=== PATIENT | female | born 1940 | race Caucasian/White ===

== ENCOUNTER 2017-10-19 15:10 | Emergency (ER) | payer MEDICARE ==
--- NOTE | 2017-10-19 17:46 | CT ---
CT HEAD NONCONTRAST: HISTORY: Fall. Head injury. COMPARISON: 01/08/2017 FINDINGS: There is no evidence of acute intracranial hemorrhage or infarct. The ventricles appear normal in si ze, shape, and position. A small hyperdense focus at the right basal ganglia is stable. There is no mass effect or shift of midline structures. The visualized paranasal sinuses remain well aerated. IMPRESSION: No acute intracranial abnormalities are demonstrated. POS: [facility]
--- NOTE | 2017-10-19 19:50 | CT ---
CT CERVICAL SPINE NONCONTRAST: HISTORY: Fall. Neck injury. FINDINGS: Vertebral body height and alignment are maintained. Disk space narrowing is most pronounced at the C 4-C5 level, where there is minimal degenerative retrolisthesis. Osteophytosis is present throughout the vertebral bodies and facets. The cervicothoracic junction is intact. Postoperative changes of the left mastoid are apparent. Pleural thickening and calcifications are ap parent at each lung apex. IMPRESSION: 1. Prominent cervical spondylosis. 2. No acute osseous abnormalities demonstrated. POS: [facility]
--- NOTE | 2017-10-19 19:51 | CT ---
CT FACE NONCONTRAST: HISTORY: Fall. Facial injury. FINDINGS: The mandible, globes, and zygomatic arches are intact. The paranasal sinuses are well aerated. No a cute fracture or dislocation. Left frontal scalp swelling is partially visualized. IMPRESSION: No acute osseous abnormalities demonstrated. POS: [facility]
--- NOTE | 2017-10-19 20:25 | RAD ---
PELVIS ONE VIEW: HISTORY: Recent fall. COMPARISON: 12/14/2006 FINDINGS: There appears to be an uncomplicated right hip prosthesis. The visualized bony pelvis appears to be intact. Limited evaluation of the sacral ala. There is irregularity involving the subcapital region of the left hip. Findings may be chronic. If the patient is unable to bear weight, consider additi onal imaging. IMPRESSION: Presumed chronic changes of the left hip. If the patient is unable to bear weight, consider left hip CT. POS: [facility]
== END 2017-10-19 20:36 | disposition home or self-care (01) ==
LOC: ERS 15:10
DX: S00.83XA Contusion of other part of head, initial encounter (principal); S00.12XA Contusion of left eyelid and periocular area, initial encounter; E11.9 Type 2 diabetes mellitus without complications; E78.5 Hyperlipidemia, unspecified; F32.9 Major depressive disorder, single episode, unspecified; Z79.82 Long term (current) use of aspirin; Z79.4 Long term (current) use of insulin; Z79.899 Other long term (current) drug therapy; W17.89XA Other fall from one level to another, initial encounter
CPT/HCPCS: 70450; 70486; 72125; 72170; 93005

== ENCOUNTER 2018-01-31 15:22 | Emergency (ER) | payer MEDICARE ==
[2018-01-31] MEDS ORDERED: HYDROcodone/Acetaminophen 10/325 mg Tablet ONE (15:40)
--- NOTE | 2018-01-31 16:22 | RAD ---
RIGHT ANKLE THREE VIEWS: INDICATIONS: Fall with injury and pain. FINDINGS: There is a fibular tip avulsion injury with associated soft tissue swelling. No significant abnormal widening of the ankle mortise. IMPRESSION: Distal fibular fracture with associated soft tissue swelling. POS: [facility]
--- NOTE | 2018-01-31 16:23 | RAD ---
RIGHT HIP TWO VIEWS: INDICATIONS: Fall with right hip pain. COMPARISON: 01/14/2017 FINDINGS: Right hip arthroplasty is again demonstrated. Alignment is grossly stable. No abnormal acute hardwa re complication identified. No acute osseous abnormality. IMPRESSION: Stable postoperative right hip. POS: [facility]
--- NOTE | 2018-01-31 16:24 | RAD ---
FRONTAL VIEW PELVIS: INDICATIONS: Followup pelvic pain, injury. COMPARISON: 10/19/2017 FINDINGS: There is a right hip prosthesis without acute hardware complication. Scattered osseous degenerative change is present. No discrete fracture of the pelvis identified. IMPRESSION: 1. Postoperative right hip. 2. No acute osseous abnormality or acute hardware complication evident. POS: [facility]
--- NOTE | 2018-01-31 16:29 | RAD ---
RIGHT FOOT THREE VIEWS: INDICATIONS: Post traumatic right foot pain. COMPARISON: Reference right ankle radiograph series for details in this regard. FINDINGS: There is scattered osteoarthritis of the right foot. Heterotopic density is present at the plantar a spect of the anterior portion of the calcaneus, likely chronic. Lisfranc joint is maintained. Chron ic heterotopic density is present, adjacent to the first MTP joint. IMPRESSION: Chronic findings of the right foot without definite acute abnormality. POS: [facility]
== END 2018-01-31 17:15 | disposition home or self-care (01) ==
LOC: ERS 15:22
DX: S82.831A Other fracture of upper and lower end of right fibula, initial encounter for closed fracture (principal); E11.9 Type 2 diabetes mellitus without complications; E78.5 Hyperlipidemia, unspecified; F41.9 Anxiety disorder, unspecified; F32.9 Major depressive disorder, single episode, unspecified; Z79.899 Other long term (current) drug therapy; Z79.4 Long term (current) use of insulin; Z79.82 Long term (current) use of aspirin; W01.0XXA Fall on same level from slipping, tripping and stumbling without subsequent striking against object, initial encounter
CPT/HCPCS: 72170

== ENCOUNTER 2018-02-20 12:26 | Emergency (ER) | payer MEDICARE ==
[2018-02-20] MEDS ORDERED: Adacel (T-DAP) 0.5 ML VIAL ONE (12:53)
== END 2018-02-20 14:23 | disposition home or self-care (01) ==
LOC: ERS 12:26
DX: S81.851A Open bite, right lower leg, initial encounter (principal); S81.811A Laceration without foreign body, right lower leg, initial encounter; I25.10 Atherosclerotic heart disease of native coronary artery without angina pectoris; E11.9 Type 2 diabetes mellitus without complications; E78.5 Hyperlipidemia, unspecified; J44.9 Chronic obstructive pulmonary disease, unspecified; F41.9 Anxiety disorder, unspecified; F32.9 Major depressive disorder, single episode, unspecified; I49.9 Cardiac arrhythmia, unspecified; Z79.4 Long term (current) use of insulin; Z79.82 Long term (current) use of aspirin; Z23 Encounter for immunization; W54.0XXA Bitten by dog, initial encounter
CPT/HCPCS: 90471; 90715

== ENCOUNTER 2018-06-02 07:02 | Outpatient (CLI) | payer MEDICARE ==
--- NOTE | 2018-06-02 08:35 | ULT ---
SONOGRAM ABDOMEN COMPLETE: History: Upper abdomen pain. Abnormal liver function tests. FINDINGS: Gallbladder has a normal appearance without evidence of stones. Common duct is 0.2 cm. Liver is unrem arkable without focal mass or intrahepatic biliary dilatation. No free fluid. Cysts arise from the cortex of each kidney, measuring up to 1.6 cm on the right and 2.4 cm on the lef t. No hydronephrosis. The spleen and visualized portions of the abdominal aorta, IVC, and pancreas avelar ve a normal appearance. IMPRESSION: 1. Bilateral renal cysts. 2. No acute abnormalities are demonstrated. POS: [facility]
== END 2018-06-02 07:03 | disposition home or self-care (01) ==
LOC: ULT 07:02
PROVIDERS: ATTEND Nurse Practitioner Family
DX: R79.89 Other specified abnormal findings of blood chemistry (principal); E11.65 Type 2 diabetes mellitus with hyperglycemia; E78.2 Mixed hyperlipidemia; N28.1 Cyst of kidney, acquired
CPT/HCPCS: 76700

== ENCOUNTER 2018-06-02 09:09 | Outpatient (CLI) | payer MEDICARE ==
--- NOTE | 2018-06-02 12:10 | BD ---
DEXA BONE DENSITOMETRY: (Dual energy X-ray Absorptiometry) 06/02/2018 HISTORY: A 77-year-old postmenopausal white female, for followup, age-related osteoporosis screening examinati on. COMPARISON: 03/11/2016 FINDINGS: The bone mineral density (BMD) is given in grams per square centimeter (g/cm2): LUMBAR SPINE: BMD(g/cm2) T-score Z-score L1: 1.083 0.8 3.2 L2: 1.163 1.2 3.9 L3: 1.242 1.4 4.2 L4: 1.324 2.4 5.2 Total: 1.214 1.5 4.2 Change in BMD compared to previous DEXA: +4.1% HIP: Femoral neck: 0.730 -1.1 1.2 Total: 0.744 -1.6 0.4 Change in BMD compared to previous DEXA: -1.9% IMPRESSION: 1) The mean bone mineral density of the lumbar spine is normal. Fracture risk is not increased. 2) The bone mineral density of the femoral neck is osteopenic. Fracture risk is increased. LAURI Bledsoe POS: [facility]
== END 2018-06-02 09:10 | disposition home or self-care (01) ==
LOC: BICMAMMO 09:09
PROVIDERS: ATTEND Nurse Practitioner Family
DX: Z13.820 Encounter for screening for osteoporosis (principal); R29.6 Repeated falls; M85.859 Other specified disorders of bone density and structure, unspecified thigh
CPT/HCPCS: 77080

== ENCOUNTER 2018-09-03 13:10 | Emergency (ER) | payer MEDICARE ==
[2018-09-03 15:06] LABS: Hemoglobin 11.3 g/dL (12.0-16.0); Mean Corpuscular HGB CONC 33.9 g/dL (32.0-36.0); Mean Corpuscular Volume 94.4 fL (78.0-98.0); Mean Platelet Volume 7.3 fL (7.4-10.4); Platelet Count 200 thou/uL (130-400); RBC Distribution Width 11.9 % (11.5-14.5); Red Blood Cell (RBC) Count 3.55 mill/uL (4.20-5.40); White Blood Cell (WBC) Count 15.8 thou/uL (4.8-10.8)
--- NOTE | 2018-09-03 15:17 | RAD ---
CHEST ONE VIEW: LEFT RIBS TWO VIEWS: HISTORY: Left upper rib pain following an injury from a fall. FINDINGS: Biapical pleural thickening. Postop midline sternotomy. No pneumothorax or pleural effusion. Minim al parenchymal changes in both lung bases, nonspecific, slightly more marked in the left base. The p ossibility of early or mild pneumonitis and/or partial atelectasis is a consideration. No evidence f or overt rib fracture. IMPRESSION: 1. No evidence for acute rib fracture. 2. Biapical pleural thickening. 3. Status post coronary artery bypass graft. 4. Increased markings in both bases, nonspecific, possibly minimal pneumonitis and/or subsegmental a telectasis versus some chronic change. 5. No evidence for other acute process. POS: [facility]
[2018-09-03 15:18] LABS: Band 26 % (5-11); Eosinophils 1 % (0-10); Lymphocytes 7 % (21-51); MDiff Complete? YES; Monocytes 4 % (0-10); Neutrophil 62 % (42-75); Platelet Morphology Comment Appears Adequate; Polychromasia SLIGHT = 2-3 cells (100X) (0-2/hpf)
[2018-09-03 15:19] LABS: ALT (SGPT) 36 U/L (8-55); AST (SGOT) 35 U/L (5-34); Albumin 3.8 g/dL (3.4-4.8); Alkaline Phosphatase 87 U/L (40-150); Anion Gap 17 mmol/L (10-20); BUN (Urea Nitrogen) 36 mg/dL (9.8-20.1); Bilirubin, Total 0.5 mg/dL (0.2-1.2); Calc. Creatinine Clearance 0 mL/min (70-130); Calcium 9.7 mg/dL (7.8-10.44); Carbon Dioxide 27 mmol/L (23-31); Chloride 96 mmol/L (98-107); Estimated GFR-MDRD 30; Globulin 2.3 g/dL (2.4-3.5); Glucose 264 mg/dL (83-110); Potassium 3.8 mmol/L (3.5-5.1); Protein, Total 6.1 g/dL (6.0-8.3); Sodium 136 mmol/L (136-145)
--- NOTE | 2018-09-03 15:36 | CT ---
NONCONTRAST CT CERVICAL SPINE: DATE: 09/03/2018. HISTORY: Pain left side of body. Patient falling over the last couple of days. Injury after fall. COMPARISON: 10/19/2017. TECHNIQUE: Contiguous axial CT images are obtained through the cervical spine from the skull base to the level o f the T3 vertebral body. Sagittal and coronal reformatted images are provided. FINDINGS: The vertebral body heights are within normal limits. No fracture or subluxation is seen in the cervi kenroy spine. Interspinous distances are within normal limits. There is stable fusion of the left aspect of the posterior elements at the C2-3 level. Multilevel de generative changes are again seen in the cervical spine which have not progressed when compared to th e prior exam. Degenerative changes are again greatest at the C4-5 level where there is prominent karina rowing of the intervertebral disk space and disk-osteophyte complex present again narrowing the ventr al subarachnoid space and encroaching on the spinal cord. There is mild right-sided neural foraminal narrowing at this level similar to prior exam. The prevertebral soft tissues are within normal limits. Vascular calcification is seen in the carotid arteries. Chronic biapical lung changes are seen with partially calcified biapical pleural and parenchymal scar ring again seen. IMPRESSION: 1. No acute fracture or subluxation involving the cervical spine. 2. Multilevel degenerative changes overall stable when compared to study on 10/19/2017. POS: [facility]
--- NOTE | 2018-09-03 15:45 | CT ---
CT BRAIN WITHOUT CONTRAST: HISTORY: Fall. Head trauma. COMPARISON: 10/19/2017 FINDINGS: No evidence of acute infarct, hemorrhage, midline shift, or abnormal extraaxial fluid collections are seen. The ventricular size is stable, and the basilar cisterns are patent. No acute calvarial frac ture is identified. A tiny, hyperdense focus in the right basal ganglia is stable. IMPRESSION: No CT evidence of acute intracranial process. POS: [facility]
[2018-09-03 17:09] LABS: Bilirubin Negative (Negative); Blood, Urine Negative (Negative); Clarity CLEAR (Clear); Glucose, Urine (Dipstick) Negative (Negative); Leukocyte Negative (Negative); Nitrite Negative (Negative); Protein, Urine (Dipstick) Negative (Neg-Trace); Urobilinogen 0.2 mg/dL (0.2-1.0)
== END 2018-09-03 17:07 | disposition home or self-care (01) ==
LOC: ERS 13:10
DX: S20.212A Contusion of left front wall of thorax, initial encounter (principal); I25.10 Atherosclerotic heart disease of native coronary artery without angina pectoris; E11.9 Type 2 diabetes mellitus without complications; E78.5 Hyperlipidemia, unspecified; J44.9 Chronic obstructive pulmonary disease, unspecified; F41.9 Anxiety disorder, unspecified; F32.9 Major depressive disorder, single episode, unspecified; Z79.82 Long term (current) use of aspirin; Z79.899 Other long term (current) drug therapy; Z79.4 Long term (current) use of insulin; W19.XXXA Unspecified fall, initial encounter
CPT/HCPCS: 36415; 36416; 70450; 72125; 80053; 81003; 85025

== ENCOUNTER 2018-10-12 09:15 | Emergency (ER) | payer MEDICARE ==
--- NOTE | 2018-10-12 09:43 | RAD ---
XR Forearm Rt 2 View STANDARD: 10/12/2018 9:23 AM CLINICAL INDICATION: Fall with injury and pain, edema COMPARISON: None. FINDINGS: Fracture:Osseous irregularity at the distal ulna is incompletely assessed Arthropathy:Chondrocalcinosis indicating CPPD deposition disease is seen Incidental findings:None of significance. IMPRESSION: 1. Osseous irregularity of the distal ulna, incompletely evaluated. Dedicated imaging of the right wr ist is recommended.. Transcribed Date/Time: 10/12/2018 9:46 AM
--- NOTE | 2018-10-12 10:34 | RAD ---
RIGHT HAND RADIOGRAPHS THREE VIEWS: 10/12/2018 PROVIDED CLINICAL HISTORY: Pain, status post injury. FINDINGS: Evaluation of the ring and small digit proximal phalanges is limited due to patient jewelry. There i s a nondisplaced radial styloid fracture demonstrated. An obliquely oriented, nondisplaced distal ul karina diaphyseal region fracture is suspected. Chondrocalcinosis and first CMC degenerative changes ar e seen. IMPRESSION: Distal radial and ulnar fractures, as above. POS: [facility]
[2018-10-12] MEDS ORDERED: Acetaminophen 500 MG TAB ONE (10:45)
--- NOTE | 2018-10-12 11:13 | CT ---
CT BRAIN: Date: 10-12-18 Provided Clinical History: Head injury. FINDINGS: Comparison 09-03-18. The ventricular system appears normal in size and morphology. There is no evidence for intracranial h emorrhage or mass effect. The extracranial soft tissues and osseous structures demonstrate no acute a bnormality. IMPRESSION: No evidence for intracranial hemorrhage or mass effect. POS: [facility]
--- NOTE | 2018-10-12 11:31 | RAD ---
RIGHT SHOULDER RADIOGRAPHS THREE VIEWS: Date: 10-12-18 Provided Clinical History: Pain status post injury. FINDINGS: Comparison 12-10-15. There is no evidence for fracture. The glenohumeral relationship appears normal. Post-operative montiel e of prior rotator cuff repair demonstrated. The subacromial space appears preserved. Mild acromiocla vicular joint degenerative change. Right apical pleural parenchymal scarring type changes appear stab le. IMPRESSION: No evidence for an acute osseous abnormality. If there is persistent clinical concern, conservative m anagement and follow up imaging are advised. POS: [facility]
[2018-10-12 12:07] LABS: #Eosinphils 0.1 thou/uL (0.0-0.7); #Lymphocytes 0.9 thou/uL (1.20-3.40); #Monocytes 0.5 thou/uL (0.11-0.59); #Neutrophils 6.3 thou/uL (1.40-6.50); %Basophils 0.5 % (0.0-1.0); %Eosinophils 0.8 % (0.0-10.0); %Lymphocytes 11.4 % (21.0-51.0); %Neutrophils 81.2 % (42.0-75.0); Hemoglobin 11.1 g/dL (12.0-16.0); Mean Corpuscular HGB CONC 32.7 g/dL (32.0-36.0); Mean Corpuscular Hemoglobin 30.6 pg (27.0-31.0); Mean Corpuscular Volume 93.4 fL (78.0-98.0); Mean Platelet Volume 7.3 fL (7.4-10.4); Platelet Count 208 thou/uL (130-400); RBC Distribution Width 11.7 % (11.5-14.5); Red Blood Cell (RBC) Count 3.63 mill/uL (4.20-5.40); White Blood Cell (WBC) Count 7.7 thou/uL (4.8-10.8)
[2018-10-12 12:13] LABS: Prothrombin Time 13.7 SEC (12.0-14.7)
[2018-10-12] MEDS ORDERED: Sodium Chloride 0.9% 100 ML ONE (12:26)
[2018-10-12] MEDS ORDERED: CEFAZOLIN 1 GM VIAL ONE ×2 (12:26→12:27)
[2018-10-12 12:27] LABS: ALT (SGPT) 27 U/L (8-55); AST (SGOT) 32 U/L (5-34); Albumin 4.1 g/dL (3.4-4.8); Alkaline Phosphatase 96 U/L (40-150); Anion Gap 13 mmol/L (10-20); BUN (Urea Nitrogen) 30 mg/dL (9.8-20.1); Bilirubin, Total 0.5 mg/dL (0.2-1.2); Calc. Creatinine Clearance 0 mL/min (70-130); Calcium 9.5 mg/dL (7.8-10.44); Carbon Dioxide 31 mmol/L (23-31); Chloride 99 mmol/L (98-107); Estimated GFR-MDRD 37; Globulin 1.8 g/dL (2.4-3.5); Glucose 181 mg/dL (83-110); Protein, Total 5.9 g/dL (6.0-8.3); Sodium 139 mmol/L (136-145)
--- NOTE | 2018-10-12 13:58 | CON ---
DATE OF CONSULTATION: HISTORY OF PRESENT ILLNESS: We were asked by ER and Trauma to see patient. The patient fell last night. She unfortunately had more wrist pain this morning when she woke. She also sustained a couple skin tears to her hand dorsally and volarly, which are not quite substantial. Her states she has very thin skin and get these quite frequently. No loss of consciousness last night. The put a wet dressing on it, wrapped it up, and she felt okay last time. When she woke up this morning, there is much more pain in her wrist. She is able to move her fingers and x-rays did show a nondisplaced wrist fracture distally. PAST MEDICAL HISTORY: Positive for coronary artery disease, cardiac issues, arrhythmia with stent placement x2, diabetes, hyperlipidemia, cholesterol, chronic obstructive pulmonary disease, renal disease, and polycystic kidney. PAST SURGICAL HISTORY: Right foot and left foot, right hip, and right shoulder , all by Dr. Elizabeth. Per the patient, cataracts, left ear, coronary artery bypass 4-vessels, hysterectomy, and cardiac transmitter placed. PAST PSYCHIATRIC HISTORY: She has some anxiety and depression. SOCIAL HISTORY: Denies alcohol, nicotine, or any drug use. Lives with her , who is a retired BSN. FAMILY HISTORY: For this visit is noncontributory. CURRENT MEDICATIONS: 1. Aspirin. 2. Gabapentin. 3. Atorvastatin. 4. Glipizide. 5. Zetia. 6. Zoloft. 7. Levemir. 8. NovoLog. ALLERGIES: TRAMADOL. REVIEW OF SYSTEMS: Currently, the patient has no shortness of breath. No chest pain. No bowel or bladder issues. No respiratory issues. Just some pain in her right wrist. Rest of review of systems discussed and are negative. PHYSICAL EXAMINATION: GENERAL: Well-nourished, tiny, skinny female, resting in room 20 on a gurney, in no acute distress. at the bedside. Speech clear. Affect pleasant. Answers questions appropriately. She is alert and oriented x3. HEENT: Normal exam. Face symmetric. Tongue midline. NECK: Supple. Trachea midline. EXTREMITIES: Upper extremities, equal size, shape, and symmetry. Normal bulk and tone with the exception of her right upper extremity, has already been dressed and splinted. We do have pictures of the superficial skin tears. They have been cleaned and dressed by the ER. added that she gets these quite frequently and they usually heal fairly well. She is moving bilateral upper extremities well, has good sensations. RESPIRATORY: No distress. NEUROLOGIC: Gait, she was walking around the room a little bit before I got there and her gait was stable. ASSESSMENT: Fall with a small skin tears to right wrist with a nondisplaced distal wrist fracture. PLAN: The patient has been splinted. Wounds being cleaned by the ER. can do some dressing changes at home. We will allow her to discharge to home. She would prefer to follow up with Dr. Elizabeth, her primary orthopedic doctor, and that is fine with us. If there is any further questions or concerns, they can give us a call. Job ID: [id number] MTDD
== END 2018-10-12 13:22 | disposition home or self-care (01) ==
LOC: ERS 09:15
DX: S52.501B Unspecified fracture of the lower end of right radius, initial encounter for open fracture type I or II (principal); S52.601B Unspecified fracture of lower end of right ulna, initial encounter for open fracture type I or II; N18.9 Chronic kidney disease, unspecified; I25.10 Atherosclerotic heart disease of native coronary artery without angina pectoris; E11.9 Type 2 diabetes mellitus without complications; E78.5 Hyperlipidemia, unspecified; J44.9 Chronic obstructive pulmonary disease, unspecified; F41.9 Anxiety disorder, unspecified; F32.9 Major depressive disorder, single episode, unspecified; Z79.82 Long term (current) use of aspirin; Z79.4 Long term (current) use of insulin; Z79.899 Other long term (current) drug therapy; W19.XXXA Unspecified fall, initial encounter
CPT/HCPCS: 29125; 36416; 70450; 80053; 85025; 85610; 96374; J0690; J3490

== ENCOUNTER 2018-11-29 14:42 | Observation (INO) | payer MEDICARE ==
[~2018-11-29 14:42] MED LIST: ISOVUE-370 76%-LOCM 1 ML ONE
[2018-11-29 15:20] LABS: Bilirubin Small (Negative); Blood, Urine Negative (Negative); Clarity CLEAR (Clear); Glucose, Urine (Dipstick) Negative (Negative); Leukocyte Negative (Negative); Nitrite Negative (Negative); Protein, Urine (Dipstick) Trace mg/dL (Neg-Trace); Specific Gravity, Urine 1.019 (1.002-1.036); Urobilinogen 0.2 mg/dL (0.2-1.0)
[2018-11-29 15:25] LABS: #Basophils 0.1 thou/uL (0.0-0.2); #Lymphocytes 0.1 thou/uL (1.20-3.40); #Monocytes 0.2 thou/uL (0.11-0.59); #Neutrophils 7.9 thou/uL (1.40-6.50); %Basophils 0.8 % (0.0-1.0); %Eosinophils 0.5 % (0.0-10.0); %Lymphocytes 1.7 % (21.0-51.0); %Monocytes 2.7 % (0.0-10.0); %Neutrophils 94.4 % (42.0-75.0); Hemoglobin 12.2 g/dL (12.0-16.0); Mean Corpuscular HGB CONC 34.3 g/dL (32.0-36.0); Mean Corpuscular Hemoglobin 31.9 pg (27.0-31.0); Mean Corpuscular Volume 92.9 fL (78.0-98.0); Mean Platelet Volume 7.1 fL (7.4-10.4); Platelet Count 137 thou/uL (130-400); RBC Distribution Width 11.2 % (11.5-14.5); Red Blood Cell (RBC) Count 3.82 mill/uL (4.20-5.40); White Blood Cell (WBC) Count 8.4 thou/uL (4.8-10.8)
--- NOTE | 2018-11-29 15:27 | RAD ---
RADIOGRAPH CHEST 1 VIEW: DATE: 11/29/2018 HISTORY: 78-year-old female with chest pain FINDINGS: There are no airspace densities, pulmonary edema, pneumothorax, or cardiomegaly. The lateral costophr enic angles are sharp. There is hyperinflation consistent with COPD. There are signs of previous CABG. IMPRESSION: 1. No acute cardiopulmonary findings. 2. Emphysema. 3. Status post coronary artery bypass graft surgery is evidence for coronary atherosclerotic disease.
[2018-11-29 15:45] LABS: ALT (SGPT) 29 U/L (8-55); AST (SGOT) 28 U/L (5-34); Alkaline Phosphatase 98 U/L (40-150); Anion Gap 15 mmol/L (10-20); BUN (Urea Nitrogen) 38 mg/dL (9.8-20.1); Bilirubin, Total 0.5 mg/dL (0.2-1.2); Calc. Creatinine Clearance 0 mL/min (70-130); Calcium 9.1 mg/dL (7.8-10.44); Carbon Dioxide 27 mmol/L (23-31); Chloride 102 mmol/L (98-107); Estimated GFR-MDRD 32; Globulin 1.6 g/dL (2.4-3.5); Glucose 188 mg/dL (83-110); Lipase 131 U/L (8-78); Potassium 4.3 mmol/L (3.5-5.1); Protein, Total 5.6 g/dL (6.0-8.3); Sodium 140 mmol/L (136-145)
--- NOTE | 2018-11-29 17:00 | CT ---
CT abdomen with contrast CT pelvis with contrast: DATE: 11/29/2018 HISTORY: 78-year-old female with nausea, vomiting, and diarrhea, and abdominal pain COMPARISON: 09/25/2010 TECHNIQUE: IV injection of iodinated contrast media:60 mL [id number] Oral contrast media:Not administered FINDINGS: The gallbladder is very distended, more so than on the prior CT, and extends inferior to the lower po le of the right kidney. No evidence of mural thickening or pericholecystic edema. There is a greater degree of diffuse dilation of the intrahepatic and extrahepatic biliary tree, with caliber of common duct 13 mm. Other than the biliary ductal dilation, no other abnormality of the liver. No portal vein thrombosis. No solid hepatic mass. No splenomegaly. Again noted is the very large number of bilateral renal cysts, left greater than right. These have increased in size, and possibly increased in number. No hydronephrosis. No abdominal aortic aneurysm. No adrenal nodule. No colonic d iverticulitis. No small bowel dilation. Right hip replacement metallic prosthesis causes severe streak artifact, obscuring significant portions of the pelvic cavity. No pleural effusion or consolid ation at lung bases. No pneumoperitoneum. Numerous sigmoid colonic diverticula without convincing evidence of acute diverticulitis. Appendix is difficult to identify with certainty, because of relati ve lack of visceral fat. IMPRESSION: 1) very distended gallbladder. 2) chronic dilation of the biliary tree has become somewhat worse since 2010. 3) interval increase in very large number of small and medium-sized bilateral renal cysts, left great er than right. Is there history of type II polycystic kidney disease? 4) status post total right hip replacement arthroplasty
[2018-11-29] MEDS ORDERED: Ketorolac Tromethamine 30 MG/ML VIAL ONE (18:38)
--- NOTE | 2018-11-29 18:54 | ULT ---
Exam: Right upper quadrant ultrasound: HISTORY: Vomiting and diarrhea. COMPARISON: CT abdomen on 11/29/2018 FINDINGS: Liver: Within normal limits Gallbladder: There is a prominent fold in the gallbladder, and the gallbladder is distended as noted on the recent CT scan examination. Gallbladder is not increased in diameter but is certainly increased in length. Common bile duct: Common duct is dilated measuring 10 mm in diameter. There is mild intrahepatic bili jose francisco ductal dilatation. Etiology for biliary duct dilatation is unable to be determined based on this exam. Pancreas: The majority of the pancreas is obscured and not well evaluated on this exam. Right kidney: The right kidney is echogenic in appearance and small in size measuring 7.8 cm in lengt h. There are several small anechoic cystic structure seen associated with the right kidney measuring up to 1.6 cm suggesting renal cysts. IVC: The visualized IVC demonstrates a normal sonographic appearance. IMPRESSION: 1. Distended gallbladder with intra and extrahepatic biliary duct dilatation of uncertain etiology. T hese findings were noted on recent CT scan examination. 2. Echogenic appearance of the right kidney which is small in size suggesting chronic medical renal d isease. Multiple right renal cysts are visualized.
[2018-11-29 20:56] LABS: Troponin I 0.017 ng/mL (< 0.028)
[2018-11-29 21:49] VITALS: BMI 16.9
[2018-11-29] MEDS ORDERED: MEROPENEM 1 GM/50 ML 1 GM in Premix Bag 1 BAG IVPB SCH (22:00)
[2018-11-29] MEDS ORDERED: Sodium Chloride 0.9% 1,000 ML IV SCH (22:05)
[2018-11-29] MEDS ORDERED: HYDROcodone/Acetaminophen 5/325 mg Tablet PO PRN ×2 (22:05)
[2018-11-29] MEDS ORDERED: Ondansetron PF 4 MG/2 ML Vial IVP PRN (22:05)
[2018-11-29] MEDS ORDERED: Ondansetron ODT 4 MG TAB SL PRN (22:05)
[2018-11-29] MEDS ORDERED: Acetaminophen 325 MG TAB PO PRN (22:05)
[2018-11-29 23:40] LABS: Troponin I 0.018 ng/mL (< 0.028)
[2018-11-30 02:33] LABS: Troponin I 0.031 ng/mL (< 0.028)
[2018-11-30] MEDS ORDERED: Dextrose 5% in Water 1,000 ML IV PRN (04:09)
[2018-11-30] MEDS ORDERED: hydrALAZINE 20 MG/ML VIAL SLOW IVP PRN (04:09)
[2018-11-30] MEDS ORDERED: HumaLOG 300 UNITS/3 ML VIAL SC PRN ×2 (04:09)
[2018-11-30] MEDS ORDERED: Dextrose 50% Abboject 50 ML SYRINGE SLOW IVP PRN (04:09)
[2018-11-30] MEDS ORDERED: Ondansetron PF 4 MG/2 ML Vial IVP PRN (04:09)
[2018-11-30] MEDS ORDERED: Ondansetron ODT 4 MG TAB PO PRN ×2 (04:09)
--- NOTE | 2018-11-30 04:37 | HP ---
PRIMARY CARE PHYSICIAN: Elly Rivera, PATTERN PUNCHER-C CHIEF COMPLAINT: Nausea, vomiting, and diarrhea. HISTORY OF PRESENT ILLNESS: Ms. Galvez is a pleasant 78-year-old female, who has a history of hypertension and diabetes as well as coronary artery disease. She says early yesterday, she started feeling sick to her stomach and then started vomiting. She says vomiting, after vomiting, after vomiting. She also was having diarrhea and had at least 3 or 4 loose watery stools. She denies having any abdominal pain, however, and no fever or chills. She says she is not really sure if she had eaten anything, which would have precipitated this. There were no other sick contacts that she knows of and by the time I see her early next morning, her symptoms have essentially resolved. She is resting comfortably in bed and basically has no complaints at this time. REVIEW OF SYSTEMS: CONSTITUTIONAL: No fevers, no chills, no night sweats. No weight loss. HEENT: No headaches. No dizziness. No visual changes. No sore throat or rhinorrhea, neck pain, no adenopathy. PULMONARY: No hemoptysis. No cough. No wheezing. CARDIOVASCULAR: She denies any chest pain. No shortness of breath. No PND. No orthopnea. GASTROINTESTINAL: As in history of present illness. GENITOURINARY: No urinary frequency or hematuria. No hesitancy. NEUROLOGIC: No focal weakness, numbness. No seizures. MUSCULOSKELETAL: No muscle pains, weakness, or joint pain. SKIN AND INTEGUMENT: No skin changes. No rash. PAST MEDICAL HISTORY: Significant for hypertension, diabetes mellitus, coronary artery disease, hyperlipidemia, depression, and peripheral vascular disease. PAST SURGICAL HISTORY: She has had a bypass surgery as well as hip replacement. ALLERGIES: MORPHINE, CODEINE, HYDROCODONE, AND IBUPROFEN. SOCIAL HISTORY: She is a nonsmoker and nondrinker. She has 2 children. She is a full code. FAMILY HISTORY: No history of any inheritable diseases. CURRENT MEDICATIONS: 1. Aspirin 81 mg daily. 2. Atorvastatin 80 mg nightly. 3. Rocaltrol 0.25 mcg q.p.m. 4. Zetia 10 mg daily. 5. Iron sulfate 325 mg q.p.m. 6. Gabapentin 600 mg nightly. 7. Glipizide 10 mg twice a day. 8. NovoLog insulin 5 units subcutaneous nightly. 9. Levemir 30 units subcutaneous q.p.m. 10. Zoloft 100 mg nightly. PHYSICAL EXAMINATION: GENERAL: She is alert and oriented. She appears to be in no acute distress. She is well developed and well nourished. VITAL SIGNS: Blood pressure is 124/60, heart rate 90, respiratory rate of 18, temperature is 98.6. HEENT: Pupils are equal, round, and reactive to light. Extraocular muscles are intact. Her sclerae are anicteric. Throat, there is no erythema. No exudates. NECK: No adenopathy, no bruits. LUNGS: Clear to auscultation. There is no wheezing, no rales, no rhonchi. CARDIOVASCULAR: She has a normal S1, S2. I did not appreciate an S3 or S4. No murmurs, clicks, or rubs. ABDOMEN: Soft. It is nontender and nondistended. Positive for bowel sounds. No rebound or guarding. EXTREMITIES: There is no clubbing or cyanosis. No edema. No calf tenderness. No joint effusions. NEUROLOGICAL: It is nonfocal. SKIN AND INTEGUMENT: No skin changes. No rash. DIAGNOSTIC STUDIES: She had a CT scan done in the ER of the abdomen and pelvis, showing a very distended gallbladder, chronic dilatation of the biliary tree is slightly worse, increased renal cyst and status post right hip replacement. The patient also had abdominal ultrasound showing distended gallbladder with intra and extrahepatic duct dilatation, uncertain etiology. ASSESSMENT: 1. This is an 78-year-old female, who presents to the emergency room with nausea, vomiting, and diarrhea, which essentially has resolved. It is unclear whether or not these findings are in any way related to the CT and ultrasound findings as she did not have any abdominal pain and her symptoms again are very short-lived, there is no white count elevation and no fever. However, she will be observed on IV fluids. We will consult GI to blow down helper in the abnormal ultrasound and CT findings. 2. Regarding the diabetes mellitus, we will actually put her back on her regular scheduled insulin. 3. Hypertension. We will need to reconcile and restart her medications for hypertension as well as p.r.n. medications. 4. Coronary artery disease. This appears to be clinically stable. She did have a slight increase in her troponins, however, and we will trend these until they go back towards baseline. There is no obvious source of infection at this time. Therefore, we will hold off on antibiotics unless she spikes a temperature or develops a leukocytosis. 5. Chronic kidney disease, this appears to be stable. Job ID: [id number]
[2018-11-30 08:07] LABS: Troponin I 0.019 ng/mL (< 0.028)
[2018-11-30] MEDS: Heparin 5,000 UNITS/ML VIAL SC SCH ×2 (08:25→20:17)
[2018-11-30] MEDS: Aspirin 81 mg Enteric Coated Tablet PO SCH (08:25)
[2018-11-30] MEDS: Acetaminophen 325 MG TAB PO PRN ×3 (08:26→21:42)
[2018-11-30] MEDS: Ondansetron PF 4 MG/2 ML Vial IVP PRN ×2 (10:02→20:18)
[2018-11-30 10:53] LABS: Troponin I 0.019 ng/mL (< 0.028)
[2018-11-30] MEDS ORDERED: Non-Formulary Item 1 EACH (Insulin Detemir 100 Units/Ml [Levemir] 30 UNITS) SC SCH (17:00)
[2018-11-30] MEDS: Insulin Glargine 30 UNITS in Pre-Filled Syringe 1 EACH SC SCH (17:01)
--- NOTE | 2018-11-30 17:22 | PDOC.PN ---
- Subjective Encounter Start Date: 11/30/18 Encounter Start Time: 17:19 Subjective: Admitted with acute onset of N/V/D associated with poor intake and weakness -: Still having loose stools. - Objective Resuscitation Status - Order Detail: 11/30/18 04:05 Resuscitation Status Routine Resuscitation Status: FULL: Full Resuscitation Vital Signs & Weight: Vital Signs (12 hours) Temp Pulse Resp BP Pulse Ox 11/30/18 07:07 98.7 F 87 18 121/63 97 Weight Admit Weight 105 lb 6.4 oz Weight 105 lb 6.4 oz Result Diagrams: 11/29/18 15:15 11/29/18 15:15 Additional Labs: Accuchecks 11/30/18 11/30/18 11/30/18 15:27 11:25 04:45 POC Glucose 105 109 111 H Phys Exam - Physical Examination Constitutional: NAD thin elderly female in no distress HEENT: PERRLA, moist MMs Neck: no JVD, supple Respiratory: no wheezing, no rales fair air entry bilaterally Cardiovascular: RRR Gastrointestinal: soft, non-tender, no distention, positive bowel sounds Musculoskeletal: no edema, pulses present Neurological: non-focal, moves all 4 limbs Psychiatric: A&O x 3 Dx/Plan (1) Acute gastroenteritis Code(s): K52.9 - NONINFECTIVE GASTROENTERITIS AND COLITIS, UNSPECIFIED Status : Acute (2) Dilation of biliary tract Code(s): K83.8 - OTHER SPECIFIED DISEASES OF BILIARY TRACT Status: Acute (3) CKD (chronic kidney disease) stage 3, GFR 30-59 ml/min Code(s): N18.3 - CHRONIC KIDNEY DISEASE, STAGE 3 (MODERATE) Status: Acute (4) CAD (coronary artery disease) Code(s): I25.10 - ATHSCL HEART DISEASE OF [place] CORONARY ARTERY W/O ANG PCTRS Status: Chronic (5) DM2 (diabetes mellitus, type 2) Status: Chronic (6) Physical deconditioning Code(s): R53.81 - OTHER [place] Status: Acute (7) Underweight Code(s): R63.6 - UNDERWEIGHT Status: Acute - Plan NS at 100 cc/hr -: Encourage intake -: PT/OT -: Repeat CMP in the am. -: Awaiting GI eval Re biliary dilatation. Start dietary supplementation * .
[2018-11-30] MEDS: Sodium Chloride 0.9% 1,000 ML IV SCH (18:13)
[2018-11-30] MEDS: Calcitriol 0.25 MCG CAP PO SCH (20:16)
[2018-11-30] MEDS: Atorvastatin Calcium 40 MG TAB PO SCH (20:16)
[2018-11-30] MEDS: Ezetimibe 10 MG TAB PO SCH (20:17)
[2018-11-30] MEDS: Gabapentin 300 MG CAP PO SCH (20:17)
[2018-11-30] MEDS: Ferrous Sulfate 325 MG TAB PO SCH (20:17)
[2018-12-01] MEDS ORDERED: Metoclopramide HCl 10 MG/2 ML VIAL IVP SCH ×2 (01:00→16:30)
[2018-12-01] MEDS: Sodium Chloride 0.9% 1,000 ML IV SCH ×3 (01:07→21:00)
--- NOTE | 2018-12-01 01:26 | CON ---
DATE OF CONSULTATION: 11/30/2018 REASON FOR CONSULT: Abnormal imaging, nausea, vomiting, diarrhea. HISTORY OF PRESENT ILLNESS: Ms. Galvez is a pleasant 78-year-old female well known to me from previous outpatient evaluations and once in the past for anemia with negative endoscopic workup and then in 2016, we saw her with dilated gallbladder and bile ducts, and mildly elevated liver enzymes and returned to normal. 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 She has really had no problems or issues other than recently, she states she has not had much of an appetite or is eating less, but her weight has been pretty good. She is 78 and she lives with a roommate at home. Her roommate was sick about 3 to 4 days ago with severe nausea, vomiting and diarrhea and yesterday, acutely in the morning, she developed acute nausea, vomiting, and diarrhea and just could not stop vomiting, so she came to the emergency room. She had no hematemesis, no melena, or hematochezia. Here in the emergency room, she was found to be mildly hypotensive. She had fever and was dehydrated. She was started on IV antibiotics, empirically on antibiotics. She is not able to have any bowel movements. She states she has not vomited since she received a nausea medicine from EMS on the way to the hospital. Her liver function tests were normal. She had a CAT scan of her abdomen that showed dilated gallbladder and dilated intrahepatic bile ducts. She had an ultrasound that showed the same thing. This is not a new finding. Presently, she is doing better. She did have some nausea after eating peaches today, but she has had no further diarrhea. 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 2. Hypertension. 3. Diabetes. 4. Coronary artery disease. 5. Hyperlipidemia. 6. Peripheral vascular disease. PAST SURGICAL HISTORY: Coronary bypass surgery in the past as well as hip replacement surgery, endoscopies as above. ALLERGIES: MORPHINE, CODEINE, HYDROCODONE, AND IBUPROFEN SOCIAL HISTORY: She does not smoke or drink. She has 2 children. She lives with a roommate. FAMILY HISTORY: Negative for colorectal cancer or liver disease. MEDICATIONS: At home; 1. Aspirin. 2. Atorvastatin. 3. Rocaltrol. 4. Zetia. 5. Iron. 6. Gabapentin. 7. Glipizide. 8. NovoLog. 9. Levemir. 10. Zoloft. Present medications here in the hospital; 1. P.r.n. Tylenol. 2. Ecotrin 81 mg a day. 3. Atorvastatin. 4. Rocaltrol. 5. Zetia. 6. Iron. 7. Neurontin. 8. Glucagon. 9. Heparin 5000 subcu b.i.d. 10. Apresoline p.r.n. 11. Insulin sliding scale. 12. Zofran p.r.n. 13. Normal saline 100 an hour. PHYSICAL EXAMINATION: VITAL SIGNS: Temperature max 100.0, present temperature 98.7; pulse is 87, down from 95 on admission; blood pressure 120/63. GENERAL: She is resting comfortably in bed. Her daughter is at the bedside. She is in no acute distress. She denies pain presently. In general, she is thin. HEENT: Oropharynx is moist. Conjunctivae and sclerae are clear. LUNGS: Clear. HEART: Regular rate and rhythm without clicks or murmurs. ABDOMEN: Soft and nontender. There is no rebound or guarding. There is no right upper quadrant tenderness or mass. There are positive bowel sounds. EXTREMITIES: No clubbing, cyanosis, or edema. SKIN: Turgor is better, it is not normal, but it is not terrible. NEUROLOGIC: She is alert and oriented to person, place, and time. She is in no distress. LABORATORY STUDIES: White count 8.4, hemoglobin 12.2, MCV 92, hemoglobin 137. On 09/08, her hemoglobin was 10.2, this is probably more her baseline. Chemistry; BUN and creatinine were 38 and 1.57 yesterday on admission, sodium 140, potassium 3.5, glucose 188, anion gap 11. Liver function tests normal. Lactic acid normal. Albumin 4, protein 5.6. Troponins negative. Lipase 131. ASSESSMENT: This is an 78-year-old female who was admitted with some mild dehydration and gastroenteritis. She had no sepsis; she did not have it on admission; she does not have it now. She had some imaging that showed dilated gallbladder and dilated intrahepatic ducts. On admission, she had a CAT scan showing a dilated gallbladder and intrahepatic ducts. She has had previous evaluation for this, it is longstanding and she has ampullary stenosis with the duodenal periampullary diverticula. She has no signs of obstruction with normal liver function tests. She has no signs of cholangitis. RECOMMENDATIONS: 1. Continue IV fluids. 2. Agree with stopping IV antibiotics since she has had no further diarrhea. She has no leukocytosis. Would advance her diet slowly with BRAT diet. We will repeat her labs tomorrow. We will follow along with you. ADDENDUM: Regarding the patient's Brilinta, she notes that she was just started on a couple days ago. She has refused to take it last night, did not take it today. States that it made her heart flutter. Her supervisor livestock yard started her on this recently. We will defer to Primary Service , we will hold it for now. Regarding her antibiotics choice, clindamycin, she is going to be on that and she is going to be on probiotics . Job ID: [id number]
[2018-12-01] MEDS: Acetaminophen 325 MG TAB PO PRN ×3 (06:19→22:47)
[2018-12-01] MEDS: Ondansetron PF 4 MG/2 ML Vial IVP PRN (06:19)
[2018-12-01 06:34] LABS: #Eosinphils 0.1 thou/uL (0.0-0.7); #Lymphocytes 0.6 thou/uL (1.20-3.40); #Monocytes 0.4 thou/uL (0.11-0.59); #Neutrophils 4.5 thou/uL (1.40-6.50); %Basophils 0.6 % (0.0-1.0); %Eosinophils 1.9 % (0.0-10.0); %Lymphocytes 10.3 % (21.0-51.0); %Monocytes 7.1 % (0.0-10.0); Hemoglobin 10.4 g/dL (12.0-16.0); Mean Corpuscular HGB CONC 33.5 g/dL (32.0-36.0); Mean Corpuscular Hemoglobin 31.4 pg (27.0-31.0); Mean Corpuscular Volume 93.7 fL (78.0-98.0); Mean Platelet Volume 7.5 fL (7.4-10.4); Platelet Count 113 thou/uL (130-400); RBC Distribution Width 11.4 % (11.5-14.5); Red Blood Cell (RBC) Count 3.32 mill/uL (4.20-5.40); White Blood Cell (WBC) Count 5.6 thou/uL (4.8-10.8)
[2018-12-01 06:44] LABS: ALT (SGPT) 31 U/L (8-55); AST (SGOT) 36 U/L (5-34); Albumin 3.3 g/dL (3.4-4.8); Alkaline Phosphatase 69 U/L (40-150); Anion Gap 15 mmol/L (10-20); BUN (Urea Nitrogen) 28 mg/dL (9.8-20.1); Bilirubin, Total 0.4 mg/dL (0.2-1.2); Calc. Creatinine Clearance 24 mL/min (70-130); Calcium 8.1 mg/dL (7.8-10.44); Carbon Dioxide 20 mmol/L (23-31); Chloride 108 mmol/L (98-107); Estimated GFR-MDRD 36; Globulin 1.9 g/dL (2.4-3.5); Glucose 81 mg/dL (83-110); Potassium 3.5 mmol/L (3.5-5.1); Protein, Total 5.2 g/dL (6.0-8.3); Sodium 139 mmol/L (136-145)
[2018-12-01] MEDS: Heparin 5,000 UNITS/ML VIAL SC SCH ×2 (09:39→20:18)
[2018-12-01] MEDS: Aspirin 81 mg Enteric Coated Tablet PO SCH (09:39)
--- NOTE | 2018-12-01 15:40 | PDOC.PN ---
- Subjective Encounter Start Date: 12/01/18 Encounter Start Time: 15:00 Subjective: Patient with persistent nausea, better but still vomiting up any food she -: eats, tolerating small sips of liquids. Persistent headache on top of head, -: pounding, no neuro signs. - Objective Resuscitation Status - Order Detail: 11/30/18 04:05 Resuscitation Status Routine Resuscitation Status: FULL: Full Resuscitation MAR Reviewed: Yes Vital Signs & Weight: Vital Signs (12 hours) Temp Pulse Resp BP BP Pulse Ox 12/01/18 12:14 98.0 F 72 16 154/67 H 97 12/01/18 09:00 96 12/01/18 08:58 98.3 F 92 16 125/61 96 12/01/18 04:00 98.9 F 98 20 128/69 95 Weight Admit Weight 105 lb 6.4 oz Weight 105 lb 6.4 oz I&O: 11/30/18 12/01/18 12/02/18 06:59 06:59 06:59 Intake Total 1430 Balance 1430 Result Diagrams: 12/01/18 06:10 12/01/18 06:10 Additional Labs: Accuchecks 12/01/18 12/01/18 11/30/18 11:32 05:11 19:52 POC Glucose 119 H 82 138 H 11/30/18 15:27 POC Glucose 105 Phys Exam - Physical Examination Constitutional: NAD HEENT: moist MMs Respiratory: no wheezing, no rales, no rhonchi Cardiovascular: RRR, no significant murmur Gastrointestinal: soft, non-tender, no distention, positive bowel sounds Neurological: non-focal Psychiatric: normal affect, A&O x 3 Dx/Plan (1) Acute gastroenteritis Code(s): K52.9 - NONINFECTIVE GASTROENTERITIS AND COLITIS, UNSPECIFIED Status : Acute Comment: persistent nausea, vomiting, and diarrhea (2) Dilation of biliary tract Code(s): K83.8 - OTHER SPECIFIED DISEASES OF BILIARY TRACT Status: Chronic Comment: chronic ampullary stenosis, no symptoms or LFT abnormalities (3) CKD (chronic kidney disease) stage 3, GFR 30-59 ml/min Code(s): N18.3 - CHRONIC KIDNEY DISEASE, STAGE 3 (MODERATE) Status: Chronic Comment: stable at baseline creatinine (4) Physical deconditioning Code(s): R53.81 - OTHER MALAISE Status: Chronic (5) Underweight Code(s): R63.6 - UNDERWEIGHT Status: Chronic (6) CAD (coronary artery disease) Code(s): I25.10 - ATHSCL HEART DISEASE OF [place] CORONARY ARTERY W/O ANG PCTRS Status: Chronic (7) DM2 (diabetes mellitus, type 2) Status: Chronic - Plan cont current plan of care, PT/OT will try reglan and toradol for headache, continue supportive care, plan to -: discharge home once tolerating oral intake well * . - Discharge Day Encounter end time: 15:15
[2018-12-01] MEDS ORDERED: Ketorolac Tromethamine 30 MG/ML VIAL IVP SCH (16:15)
[2018-12-01] MEDS: Insulin Glargine 30 UNITS in Pre-Filled Syringe 1 EACH SC SCH (17:36)
--- NOTE | 2018-12-01 18:26 | PRG ---
DATE OF SERVICE: 12/01/2018 SUBJECTIVE: Ms. Galvez still having some diarrhea and little bit of nausea. She not really can do much more than liquids. She has had no fever or chills. She does state she feels a little better than yesterday. MEDICATIONS: Continues on: 1. Iron. 2. Lipitor. 3. Ecotrin. 4. Tylenol. 5. Subcutaneous heparin. 6. Insulin sliding scale. 7. Toradol. 8. Reglan 1 dose today. 9. Zofran. 10. Normal saline 100 mL an hour. OBJECTIVE: VITAL SIGNS: Temperature is 98, last fever was 4 a.m. on 11/30 at 100.0, blood pressure is 154/67, pulse is 82. LUNGS: Clear. HEART: Regular. No murmurs. ABDOMEN: Soft. Mildly tender in the right upper quadrant, but no rebound or guarding. No palpable hepatosplenomegaly or palpable gallbladder. LABORATORY DATA: White count 5.6, hemoglobin 10.4, platelet count 113. Sodium 139, potassium 3.5, BUN and creatinine are 28 and 1.39. These continue to improve. ASSESSMENT: 1. Acute gastroenteritis, slowly improving. 2. Likely viral fever, resolved. 3. Long history of dilated gallbladder and common bile duct secondary to ampullary stenosis in periampullary diverticula with no signs of biliary obstruction. Would not intervene with this at this time. Job ID: [id number]
[2018-12-01] MEDS: Atorvastatin Calcium 40 MG TAB PO SCH (20:17)
[2018-12-01] MEDS: Gabapentin 300 MG CAP PO SCH (20:17)
[2018-12-01] MEDS: Ezetimibe 10 MG TAB PO SCH (20:17)
[2018-12-01] MEDS: Ferrous Sulfate 325 MG TAB PO SCH (20:17)
[2018-12-01] MEDS: Calcitriol 0.25 MCG CAP PO SCH (20:17)
[2018-12-02] MEDS: Sodium Chloride 0.9% 1,000 ML IV SCH (06:46)
--- NOTE | 2018-12-02 08:09 | PDOC.PN ---
- Subjective Encounter Start Date: 12/02/18 Encounter Start Time: 12:00 Subjective: Patient feeling a bit better. Nausea improved. No more vomiting. Not eating -: much yet but able to drink fluids well. Still lots of diarrhea. Quite weak -: and would like to go to inpatient rehab before home. - Objective Resuscitation Status - Order Detail: 11/30/18 04:05 Resuscitation Status Routine Resuscitation Status: FULL: Full Resuscitation MAR Reviewed: Yes Vital Signs & Weight: Vital Signs (12 hours) Temp Pulse Resp BP BP Pulse Ox 12/02/18 07:39 98.8 F 78 18 149/67 H 97 12/02/18 04:00 99.2 F 85 20 138/76 96 12/02/18 00:00 98.9 F 87 20 146/75 H 95 Weight Admit Weight 105 lb 6.4 oz Weight 105 lb 6.4 oz I&O: 12/01/18 12/02/18 12/03/18 06:59 06:59 06:59 Intake Total 1430 2609 Balance 1430 2609 Result Diagrams: 12/01/18 06:10 12/01/18 06:10 Additional Labs: Accuchecks 12/02/18 12/01/18 12/01/18 05:01 20:25 16:17 POC Glucose 82 111 H 98 12/01/18 11:32 POC Glucose 119 H Phys Exam - Physical Examination Constitutional: NAD HEENT: moist MMs Respiratory: no wheezing, no rales, no rhonchi, clear to auscultation bilateral Cardiovascular: RRR, no significant murmur Gastrointestinal: soft, non-tender, positive bowel sounds Neurological: non-focal Psychiatric: normal affect, A&O x 3 Dx/Plan (1) Acute gastroenteritis Code(s): K52.9 - NONINFECTIVE GASTROENTERITIS AND COLITIS, UNSPECIFIED Status : Acute Comment: persistent nausea, vomiting, and diarrhea (2) Dilation of biliary tract Code(s): K83.8 - OTHER SPECIFIED DISEASES OF BILIARY TRACT Status: Chronic Comment: chronic ampullary stenosis, no symptoms or LFT abnormalities (3) CKD (chronic kidney disease) stage 3, GFR 30-59 ml/min Code(s): N18.3 - CHRONIC KIDNEY DISEASE, STAGE 3 (MODERATE) Status: Chronic Comment: stable at baseline creatinine (4) Physical deconditioning Code(s): R53.81 - OTHER MALAISE Status: Chronic (5) Underweight Code(s): R63.6 - UNDERWEIGHT Status: Chronic (6) CAD (coronary artery disease) Code(s): I25.10 - ATHSCL HEART DISEASE OF [place] CORONARY ARTERY W/O ANG PCTRS Status: Chronic (7) DM2 (diabetes mellitus, type 2) Status: Chronic - Plan cont current plan of care will decrease IV fluids -: PT eval and rehab * . - Discharge Day Encounter end time: 12:15
[2018-12-02] MEDS: Aspirin 81 mg Enteric Coated Tablet PO SCH (08:22)
[2018-12-02] MEDS: Heparin 5,000 UNITS/ML VIAL SC SCH ×2 (08:22→21:06)
[2018-12-02] MEDS ORDERED: Dextrose 5 %-0.45 % NaCl 1,000 ML IV SCH (13:30)
[2018-12-02] MEDS: Sodium Chloride 0.45% 1,000 ML IV SCH (15:44)
[2018-12-02] MEDS: Insulin Glargine 30 UNITS in Pre-Filled Syringe 1 EACH SC SCH (17:01)
--- NOTE | 2018-12-02 19:32 | PRG ---
DATE OF SERVICE: 12/02/2018 SUBJECTIVE: Ms. Galvez is starting to eat some, although she does not want to eat her dinner because it is "nasty." She states that she has had 3 stools today, which were loose and dark. Talking with the nurse, she had formed stools when he see no other bowel movement. OBJECTIVE: VITAL SIGNS: T-max 106.4 at 4 a.m. Since then, she has been afebrile, temperature current 98.8, pulse is 79, and blood pressure 149/67. LUNGS: Clear. HEART: Regular without clicks or murmurs. ABDOMEN: Soft and nontender. LABORATORY DATA: None today. ASSESSMENT: 1. Acute diarrheal illness, resolving. 2. Nausea and vomiting, resolving. RECOMMENDATIONS: 1. Advance diet as tolerated, probably be better if she had something a little less abrasive diet vincent, maybe something along the lines of soup. 2. We will order some stool studies if she has further diarrhea. 3. We will check labs in the morning. Job ID: [id number] MTDD
[2018-12-02] MEDS: Atorvastatin Calcium 40 MG TAB PO SCH (20:52)
[2018-12-02] MEDS: Gabapentin 300 MG CAP PO SCH (20:52)
[2018-12-02] MEDS: Calcitriol 0.25 MCG CAP PO SCH (20:52)
[2018-12-02] MEDS: Ezetimibe 10 MG TAB PO SCH (20:52)
[2018-12-02] MEDS: Ferrous Sulfate 325 MG TAB PO SCH (20:52)
[2018-12-02] MEDS: Acetaminophen 325 MG TAB PO PRN (20:53)
[2018-12-03 05:04] LABS: #Eosinphils 0.1 thou/uL (0.0-0.7); #Monocytes 0.5 thou/uL (0.11-0.59); #Neutrophils 2.5 thou/uL (1.40-6.50); %Basophils 0.3 % (0.0-1.0); %Eosinophils 2.7 % (0.0-10.0); %Lymphocytes 23.8 % (21.0-51.0); %Monocytes 12.7 % (0.0-10.0); %Neutrophils 60.5 % (42.0-75.0); Hemoglobin 9.7 g/dL (12.0-16.0); Mean Corpuscular HGB CONC 34.5 g/dL (32.0-36.0); Mean Corpuscular Hemoglobin 31.8 pg (27.0-31.0); Mean Corpuscular Volume 92.1 fL (78.0-98.0); Mean Platelet Volume 7.4 fL (7.4-10.4); Platelet Count 149 thou/uL (130-400); RBC Distribution Width 11.1 % (11.5-14.5); Red Blood Cell (RBC) Count 3.07 mill/uL (4.20-5.40); White Blood Cell (WBC) Count 4.1 thou/uL (4.8-10.8)
[2018-12-03 05:21] LABS: Anion Gap 13 mmol/L (10-20); BUN (Urea Nitrogen) 13 mg/dL (9.8-20.1); Calc. Creatinine Clearance 31 mL/min (70-130); Calcium 7.9 mg/dL (7.8-10.44); Carbon Dioxide 23 mmol/L (23-31); Chloride 108 mmol/L (98-107); Estimated GFR-MDRD 49; Glucose 126 mg/dL (83-110); Potassium 3.1 mmol/L (3.5-5.1); Sodium 141 mmol/L (136-145)
[2018-12-03] MEDS: Aspirin 81 mg Enteric Coated Tablet PO SCH (09:16)
[2018-12-03] MEDS: Heparin 5,000 UNITS/ML VIAL SC SCH ×2 (09:16→20:08)
[2018-12-03] MEDS ORDERED: Potassium Chloride 20 MEQ TAB PO SCH (10:45)
[2018-12-03] MEDS: Sodium Chloride 0.45% 1,000 ML IV SCH (11:01)
[2018-12-03] MEDS: Insulin Glargine 30 UNITS in Pre-Filled Syringe 1 EACH SC SCH (16:44)
--- NOTE | 2018-12-03 17:56 | PRG ---
DATE OF SERVICE: 12/03/2018 SUBJECTIVE: Ms. Galvez is having less diarrhea. She is tolerating soups and sandwiches. She had one episode of diarrhea today. Stools sent for C diff and those were positive. OBJECTIVE: VITAL SIGNS: Temperature is 98, pulse 79, blood pressure 153/74. LUNGS: Clear. HEART: Regular . ABDOMEN: Soft, nontender. No rebound or guarding. ASSESSMENT: Acute diarrheal illness. Initially presented with nausea and vomiting and diarrhea. She had a sick contact and had similar symptoms at home a few days prior she was brought to the hospital. She seemed to get better for few days. She had been on empiric antibiotics and those were stopped, and then yesterday started having severe diarrhea. Her stool for Clostridium difficile is positive now. We will recommend starting on probiotics and vancomycin. Dr. Page will follow along with you. Job ID: [id number]
[2018-12-03] MEDS: Vancomycin HCl 25 MG/ML Oral PO SCH ×2 (18:14→20:05)
[2018-12-03] MEDS: Acetaminophen 325 MG TAB PO PRN (20:07)
[2018-12-03] MEDS: Gabapentin 300 MG CAP PO SCH (20:07)
[2018-12-03] MEDS: Ezetimibe 10 MG TAB PO SCH (20:07)
[2018-12-03] MEDS: Atorvastatin Calcium 40 MG TAB PO SCH (20:07)
[2018-12-03] MEDS: Ferrous Sulfate 325 MG TAB PO SCH (20:07)
[2018-12-03] MEDS: Calcitriol 0.25 MCG CAP PO SCH (20:08)
--- NOTE | 2018-12-03 21:50 | PDOC.PN ---
- Subjective Encounter Start Date: 12/03/18 Encounter Start Time: 10:20 Still complaining of some diarrhea. Had some nausea, but better. - Objective Resuscitation Status - Order Detail: 11/30/18 04:05 Resuscitation Status Routine Resuscitation Status: FULL: Full Resuscitation Vital Signs & Weight: Vital Signs (12 hours) Temp Pulse Resp BP Pulse Ox 12/03/18 19:21 99.5 F 77 18 174/74 H 98 Weight Admit Weight 105 lb 6.4 oz Weight 105 lb 6.4 oz I&O: 12/02/18 12/03/18 12/04/18 06:59 06:59 06:59 Intake Total 2609 905 Balance 2609 905 Result Diagrams: 12/03/18 04:26 12/03/18 04:26 Additional Labs: Accuchecks 12/03/18 12/03/18 12/03/18 21:31 16:42 11:46 POC Glucose 114 H 198 H 152 H 12/03/18 04:30 POC Glucose 137 H Phys Exam - Physical Examination Constitutional: NAD Neck: no JVD Respiratory: no wheezing, no rales, no rhonchi Cardiovascular: RRR, no significant murmur, no rub Gastrointestinal: soft, non-tender, no distention, positive bowel sounds Musculoskeletal: no edema Neurological: non-focal Psychiatric: normal affect Dx/Plan (1) Acute gastroenteritis Code(s): K52.9 - NONINFECTIVE GASTROENTERITIS AND COLITIS, UNSPECIFIED Status : Acute Comment: persistent nausea, vomiting, and diarrhea (2) CKD (chronic kidney disease) stage 3, GFR 30-59 ml/min Code(s): N18.3 - CHRONIC KIDNEY DISEASE, STAGE 3 (MODERATE) Status: Chronic Comment: stable at baseline creatinine (3) Dilation of biliary tract Code(s): K83.8 - OTHER SPECIFIED DISEASES OF BILIARY TRACT Status: Chronic Comment: chronic ampullary stenosis, no symptoms or LFT abnormalities (4) Physical deconditioning Code(s): R53.81 - OTHER MALAISE Status: Chronic (5) CAD (coronary artery disease) Code(s): I25.10 - ATHSCL HEART DISEASE OF [place] CORONARY ARTERY W/O ANG PCTRS Status: Chronic (6) DM2 (diabetes mellitus, type 2) Status: Chronic - Plan * Has stool studies pending. * Discussed with GI. IF negative, can go to rehab. * Blood sugars well controlled.
[2018-12-04] MEDS: Vancomycin HCl 25 MG/ML Oral PO SCH ×3 (01:44→13:31)
[2018-12-04] MEDS: Sodium Chloride 0.45% 1,000 ML IV SCH (05:27)
[2018-12-04 07:04] VITALS: BP 153/73; TEMP 98.2
[2018-12-04] MEDS: Acetaminophen 325 MG TAB PO PRN (08:11)
[2018-12-04] MEDS: Aspirin 81 mg Enteric Coated Tablet PO SCH (08:11)
[2018-12-04] MEDS: Heparin 5,000 UNITS/ML VIAL SC SCH (08:12)
[2018-12-04] MEDS ORDERED: Lactinex Tablet PO SCH (09:00)
--- NOTE | 2018-12-04 10:27 | PRG ---
DATE OF SERVICE: 12/04/2018 SUBJECTIVE: This is an 78-year-old female with abdominal pain, diarrhea, nausea, vomiting. The initial impression was that she has most likely gastritis. However, her C. difficile came back positive and she was on vancomycin. She is actually doing better. She is tolerating diet. No abdominal pain. No nausea or vomiting today. She had no stool today. OBJECTIVE: GENERAL: Appears comfortable. VITAL SIGNS: Afebrile, pulse is 78, and blood pressure is 153/73. CARDIOVASCULAR SYSTEM: Within normal limits. LUNGS: Within normal limits. ABDOMEN: Soft. No organomegaly. No tenderness. No masses. CLINICAL IMPRESSION: Diarrhea with positive Clostridium difficile toxin antigen. RECOMMENDATION: Continue vancomycin. She is actually doing well and she does well. She can probably go home on vancomycin in the next 24 hours. Job ID: [id number]
--- NOTE | 2018-12-04 11:21 | EKG ---
Test Reason : Blood Pressure : / mmHG Vent. Rate : 100 BPM Atrial Rate : 100 BPM P-R Int : 134 ms QRS Dur : 114 ms QT Int : 374 ms P-R-T Axes : 033 -34 -17 degrees QTc Int : 482 ms Normal sinus rhythm Left axis deviation Right bundle branch block T wave abnormality, consider inferior ischemia Abnormal ECG Confirmed by CHLOE MATHEWS, BEVERLEY Loo ([id number]), editor dictionary DUANE BAIRES ([id number]) on 12/04/2018 11:20:52 AM Referred By: Confirmed By:BEVERLEY CORONA MD
--- NOTE | 2018-12-06 12:21 | DIS ---
DATE OF ADMISSION: 11/29/2018 DATE OF DISCHARGE: 12/04/2018 DISCHARGE DIAGNOSES: 1. Clostridium difficile colitis. 2. Chronic kidney disease stage 3. 3. Chronic dilatation of the biliary tract. 4. Physical deconditioning. 5. History of coronary artery disease. 6. Diabetes mellitus. HISTORY OF PRESENT ILLNESS: This patient is an 78-year-old female, who presented to the hospital with nausea, vomiting, and diarrhea. Her initial workup included a CT scan that revealed some dilated biliary tree. The patient was subsequently admitted to the hospital. HOSPITAL COURSE: The patient was seen in consultation by GI and while she was started on IV fluids and symptomatic therapy, was initially felt that she had a straightforward likely viral gastroenteritis with a T-max over the first 24 hours of 100.0. She continued to be treated symptomatically and her symptoms did improve. The nausea and vomiting abated and she was able to start taking some p.o. She was noted by GI to have a chronic history of dilated biliary tree with periampullary diverticulum. Therefore, no further workup was felt necessary in that situation as the patient's abdominal cramping and diarrhea persisted. A C diff toxin was ordered and did in fact returned positive, and was felt to be the underlying source of her symptoms with that. The patient was started on p.o. vancomycin and was felt to be stable for discharge with continued outpatient therapy. The patient was evaluated by inpatient rehab because of her general debility and was accepted there. PHYSICAL EXAMINATION: VITAL SIGNS: On the day of discharge, the patient's temperature was 98.2, pulse 78, respirations 19, O2 saturation 98% on room air, BP 153/73. GENERAL: The patient was awake and alert, pleasant, and cooperative. HEART: Regular rate and rhythm. LUNGS: Clear. ABDOMEN: Soft and nondistended. Mildly tender with hyperactive bowel sounds. There were no masses or organomegaly. EXTREMITIES: Had no edema. DISPOSITION: The patient is discharged to the [facility]. ACTIVITY: As tolerated. DIET: She will be on a diabetic diet. She will have PT and OT evaluations. DISCHARGE MEDICATIONS: She will be on, 1. Acetaminophen p.r.n. 2. Subcu heparin b.i.d. 3. Floranex. 4. P.r.n. Zofran. 5. Vancomycin 125 mg q.6 hours. She will continue her home medicines including, 1. Aspirin. 2. Levemir. 3. Glucotrol. 4. Atorvastatin. 5. Ferrous sulfate. 6. Calcitriol. 7. Gabapentin. 8. Ezetimibe. 9. Sertraline. 10. NovoLog. FOLLOWUP: She will be seen by Dr. Fierro and will follow up with [facility] and Elly Rivera APRN in [place] at the time of her outpatient followup. She can return to the hospital should she have any problems prior to that time. Job ID: [id number]
== END 2018-12-04 16:56 ==
LOC: ERS 14:42 → INTOOBSV 21:22 → T4-B 21:22
PROVIDERS: ADMIT Internal Medicine; ATTEND Internal Medicine
DX: R07.9 Chest pain, unspecified (principal); J43.9 Emphysema, unspecified; R19.7 Diarrhea, unspecified; R11.2 Nausea with vomiting, unspecified; I12.9 Hypertensive chronic kidney disease with stage 1 through stage 4 chronic kidney disease, or unspecified chronic kidney disease; E11.22 Type 2 diabetes mellitus with diabetic chronic kidney disease; N18.9 Chronic kidney disease, unspecified; I25.10 Atherosclerotic heart disease of native coronary artery without angina pectoris; E78.5 Hyperlipidemia, unspecified; F32.9 Major depressive disorder, single episode, unspecified; I73.9 Peripheral vascular disease, unspecified; Z79.4 Long term (current) use of insulin; Z79.82 Long term (current) use of aspirin; Z79.899 Other long term (current) drug therapy; Z88.6 Allergy status to analgesic agent; Z95.1 Presence of aortocoronary bypass graft
CPT/HCPCS: 51701; 71045; 74177; 76705; 80048; 80053 ×2; 81003; 82962 ×5; 83605; 83690; 84484 ×4; 85025 ×3; 87040 ×2; 87086; 87324; 87449; 93005; 96361 ×4; 96374; 97116; 97139 ×10; 99291; G0378; 36415; 36416; J1644; J1825; J1885; J2185; J2405; J2765; Q0162; Q9966

== ENCOUNTER 2019-02-25 12:19 | Outpatient (CLI) | payer MEDICARE ==
--- NOTE | 2019-02-25 13:30 | ULT ---
Exam: Bilateral renal ultrasound HISTORY: Polycystic kidney disease COMPARISON: Renal ultrasound dated December 15, [address] the abdomen and pelvis dated November 29, 2018 FINDINGS: Right kidney: There are multiple right-sided renal cysts. The index cyst within the medial, mid right kidney is slightly enlarged from 2011 measuring 1.5 x 1.4 x 1.5 cm where previously this cyst measured 1.2 x 1.0 x 1.1 cm. Right kidney measurements: The right kidney measures 9.9 x 5.1 x 4.1 cm Left kidney: There are multiple left renal cysts. The mildly septated cyst involving the superior chente e of the left kidney now measures 2.6 x 2.0 x 1.8 cm were previously it measured 2.3 x 1.4 x 1.5 cm. Left kidney measurements: 10.5 x 5.6 x 4.6 cm Urinary bladder: Prevoid bladder volume was 29.34 cc. IMPRESSION: Bilateral renal cysts. Slight interval enlargement a mildly septated cyst involving the s uperior pole of the left kidney. Otherwise stable exam.
== END 2019-02-25 12:20 | disposition home or self-care (01) ==
LOC: BICULT 12:19
PROVIDERS: ATTEND Nurse Practitioner Family
DX: R31.9 Hematuria, unspecified (principal); N28.1 Cyst of kidney, acquired
CPT/HCPCS: 76770

== ENCOUNTER 2019-05-30 08:51 | Outpatient (CLI) | payer MEDICARE ==
--- NOTE | 2019-05-30 10:07 | ULT ---
RENAL ULTRASOUND: DATE: 05/30/2019. PROVIDED CLINICAL HISTORY: Followup renal cyst. FINDINGS: Comparison 02/25/2019. The right kidney measures about 8.7 x 4.5 x 3.4 cm and demonstrates numerous simple-appearing cysts. There is no evidence for hydronephrosis or mass. The left kidney measures about 11.1 x 4.8 x 5.3 cm and demonstrates numerous cysts including a stable septated cyst at the superior pole. No evidence for hydronephrosis or solid mass. The urinary blad fanny is decompressed and not well evaluated. Increased echogenicity to the renal parenchyma bilaterally is redemonstrated. IMPRESSION: Stable exam. POS: OFF
== END 2019-05-30 08:52 | disposition home or self-care (01) ==
LOC: BICULT 08:51
PROVIDERS: ATTEND Internal Medicine Nephrology
DX: N28.1 Cyst of kidney, acquired (principal)
CPT/HCPCS: 76770

== ENCOUNTER 2019-07-28 09:25 | Outpatient (CLI) | payer MEDICARE ==
--- NOTE | 2019-07-28 11:03 | ULT ---
ULTRASOUND ABDOMEN LIMITED: (RIGHT UPPER QUADRANT) DATE: 07/28/2019 HISTORY: 79-year-old female with elevated LFTs. FINDINGS: Gallbladder:The elongated and somewhat distended. No gallstones or pericholecystic fluid identified. Wall thickness upper limits of normal, approximately 3 mm. Common duct: 15 mm. Liver:Echogenicity and size within normal limits. Intrahepatic biliary ductal dilation. Pancreas:Limited visualization Right kidney:Small size. Diffusely increased parenchymal echogenicity. Large number of mostly small c ysts. IMPRESSION: 1. Small, echogenic right kidney with numerous cysts: Evidence for chronic medical renal disease. 2. Significant diffuse dilation of the biliary tree, chronic.
== END 2019-07-28 09:26 | disposition home or self-care (01) ==
LOC: SCSULT 09:25
PROVIDERS: ATTEND Nurse Practitioner Family
DX: R74.8 Abnormal levels of other serum enzymes (principal); E11.22 Type 2 diabetes mellitus with diabetic chronic kidney disease; N18.9 Chronic kidney disease, unspecified; N28.1 Cyst of kidney, acquired; N28.89 Other specified disorders of kidney and ureter; K83.8 Other specified diseases of biliary tract
CPT/HCPCS: 76705

== ENCOUNTER 2019-08-25 12:58 | Outpatient (CLI) | payer MEDICARE ==
--- NOTE | 2019-08-25 14:48 | MRI ---
MRI BRAIN NONCONTRAST: DATE: 08/25/2019. 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 TECHNIQUE: This was ordered as MRI with and without contrast. However, because of low GFR of 33, no Gadolinium-based contrast agent was given. In addition to tamia dard whole brain sequences, 3D axial CISS through the IACs was performed. FINDINGS: The ventricles are normal in size and configuration. There is no restricted diffusion, midline shift or any other mass effect, recent intraaxial hemorrhage, or extraaxial fluid collection. There are a few scattered tiny T2-hyperintensities in the cerebral white matter consistent with mild chronic isc hemic white matter changes due to mild microvascular atherosclerosis. There is too much motion artif act degrading the 3D axial CISS sequences to evaluate the inner ear structures in detail. There is n o obvious mass in the CP angles. The CISS sequence was repeated, but the repeat sequence is also deg raded by motion. There are mild chronic ischemic white matter changes also in the alfreda. IMPRESSION: 1. Mild chronic ischemic white matter changes. 2. Otherwise negative. jn[] POS: TPC
== END 2019-08-25 12:59 | disposition home or self-care (01) ==
LOC: MRI 12:58
PROVIDERS: ATTEND Specialist
DX: H81.4 Vertigo of central origin (principal); I67.82 Cerebral ischemia
CPT/HCPCS: 70551; 82565

== ENCOUNTER 2020-06-25 14:12 | Outpatient (CLI) | payer MEDICARE ==
--- NOTE | 2020-06-25 14:44 | BD ---
DEXA BONE MINERAL DENSITY STUDY: HISTORY: Osteoporosis screening. COMPARISON: DEXA scan 2007 and 2015. FINDINGS: Lumbar Spine: BMD (g/cm2) L1 1.046 T-Score: 0.5 2.9 L2 1.055 T-Score: 0.2 3.0 L3 1.134 T-Score: 0.5 3.3 L4 1.238 T-Score: 1.6 4.6 L1-L4 1.127 T-Score: 0.7 3.5 Change from the comparison examination is -7.1%, statistically significant. Change from the baseline is -3.4%, statistically significant. Femoral Neck: 0.738 T-Score: -1.0 1.4 Total Femur: 0.770 T-Score: -1.4 0.8 Change from the comparison examination is 3.4% and change from the baseline is 1.4%. WHO classification: Osteopenia. Ten-year fracture risk: Major osteoporotic fracture 8.5% and hip fracture 2%. Impression: Osteopenia with elevated fracture risk. POS: RM
== END 2020-06-25 14:13 | disposition home or self-care (01) ==
LOC: BICMAMMO 14:12
PROVIDERS: ATTEND Nurse Practitioner Family
DX: Z13.820 Encounter for screening for osteoporosis (principal); N95.8 Other specified menopausal and perimenopausal disorders; M85.859 Other specified disorders of bone density and structure, unspecified thigh
CPT/HCPCS: 77080

== ENCOUNTER 2021-02-21 13:11 | Inpatient (IN) | payer MEDICARE ==
[2021-02-21] MEDS ORDERED: Lidocaine 1% w/Epinephrine 1:100K 20 ML VIAL ONE (13:50)
[2021-02-21 14:25] LABS: #Eosinphils 0.1 thou/uL (0.0-0.7); #Lymphocytes 0.8 thou/uL (1.20-3.40); #Monocytes 0.4 thou/uL (0.11-0.59); #Neutrophils 6.7 thou/uL (1.40-6.50); %Basophils 0.4 % (0.0-1.0); %Eosinophils 1.3 % (0.0-10.0); %Monocytes 5.2 % (0.0-10.0); %Neutrophils 83.1 % (42.0-75.0); Hemoglobin 11.4 g/dL (12.0-16.0); Mean Corpuscular HGB CONC 34.8 g/dL (32.0-36.0); Mean Corpuscular Hemoglobin 31.9 pg (27.0-31.0); Mean Corpuscular Volume 91.7 fL (78.0-98.0); Mean Platelet Volume 7.5 fL (7.4-10.4); Platelet Count 146 thou/uL (130-400); RBC Distribution Width 11.3 % (11.5-14.5); Red Blood Cell (RBC) Count 3.58 mill/uL (4.20-5.40)
[2021-02-21 14:43] LABS: ALT (SGPT) 30 U/L (8-55); AST (SGOT) 33 U/L (5-34); Albumin 4.2 g/dL (3.4-4.8); Alkaline Phosphatase 125 U/L (40-110); Anion Gap 14 mmol/L (10-20); BUN (Urea Nitrogen) 30 mg/dL (9.8-20.1); Bilirubin, Total 0.6 mg/dL (0.2-1.2); Calc. Creatinine Clearance 0 mL/min (70-130); Calcium 9.5 mg/dL (7.8-10.44); Carbon Dioxide 28 mmol/L (23-31); Chloride 101 mmol/L (98-107); Globulin 2.3 g/dL (2.4-3.5); Glucose 278 mg/dL (83-110); Potassium 4.1 mmol/L (3.5-5.1); Protein, Total 6.5 g/dL (5.8-8.1); Sodium 139 mmol/L (136-145)
[2021-02-21] MEDS ORDERED: hydrALAZINE 20 MG/ML VIAL SLOW IVP PRN (18:34)
[2021-02-21] MEDS ORDERED: Dextrose 50% Abboject 50 ML SYRINGE SLOW IVP PRN (18:34)
[2021-02-21] MEDS ORDERED: Ondansetron PF 4 MG/2 ML Vial IVP PRN (18:34)
[2021-02-21] MEDS ORDERED: Dextrose 5% in Water 1,000 ML IV PRN (18:34)
[2021-02-21] MEDS ORDERED: HumaLOG 300 UNITS/3 ML VIAL SC PRN ×2 (18:34)
[2021-02-21 19:34] VITALS: BMI 20.1
[2021-02-21 19:34] LABS: INR-International Normal Ratio 1.1; PTT 31.2 sec (22.9-36.1); Prothrombin Time 14.2 sec (12.0-14.7)
[2021-02-21] MEDS ORDERED: Sodium Chloride 0.9% 1,000 ML IV SCH (19:45)
[2021-02-21] MEDS ORDERED: Famotidine 20 MG TAB PO SCH (21:00)
[2021-02-21 23:11] LABS: SARS-CoV-2 NAA Rapid Test Not Detected (NotDetected)
[2021-02-22] MEDS ORDERED: Acetaminophen 325 MG TAB ONE ×2 (03:00→10:37)
[2021-02-22] MEDS ORDERED: Acetaminophen 500 MG TAB ONE ×2 (03:01→15:23)
[2021-02-22] MEDS: Senokot S 8.6-50 MG TAB PO SCH ×2 (03:08→09:05)
[2021-02-22] MEDS: Acetaminophen 500 MG TAB PO SCH ×3 (03:09→12:10)
[2021-02-22 05:25] LABS: #Eosinphils 0.1 thou/uL (0.0-0.7); #Monocytes 0.5 thou/uL (0.11-0.59); #Neutrophils 5.6 thou/uL (1.40-6.50); %Basophils 0.3 % (0.0-1.0); %Eosinophils 1.6 % (0.0-10.0); %Lymphocytes 13.7 % (21.0-51.0); %Monocytes 7.4 % (0.0-10.0); %Neutrophils 77.1 % (42.0-75.0); Mean Corpuscular HGB CONC 33.8 g/dL (32.0-36.0); Mean Corpuscular Volume 91.7 fL (78.0-98.0); Mean Platelet Volume 7.6 fL (7.4-10.4); Platelet Count 148 thou/uL (130-400); RBC Distribution Width 11.3 % (11.5-14.5); Red Blood Cell (RBC) Count 3.56 mill/uL (4.20-5.40); White Blood Cell (WBC) Count 7.3 thou/uL (4.8-10.8)
[2021-02-22 05:46] LABS: Anion Gap 13 mmol/L (10-20); BUN (Urea Nitrogen) 27 mg/dL (9.8-20.1); Calc. Creatinine Clearance 21 mL/min (70-130); Calcium 9.5 mg/dL (7.8-10.44); Carbon Dioxide 27 mmol/L (23-31); Chloride 103 mmol/L (98-107); Glucose 235 mg/dL (83-110); Phosphorus 3.5 mg/dL (2.3-4.7); Potassium 3.6 mmol/L (3.5-5.1); Sodium 139 mmol/L (136-145)
[2021-02-22] MEDS ORDERED: Senokot S 8.6-50 MG TAB ONE (08:36)
[2021-02-22] MEDS ORDERED: Polyethylene Glycol 3350 17 GM Packet PO SCH (09:00)
[2021-02-22] MEDS ORDERED: Magnesium 2 GM/50 ML 2 GM in Premix Bag 1 BAG IVPB SCH (09:15)
[2021-02-22 11:00] VITALS: TEMP 97.9
[2021-02-22] MEDS ORDERED: HumaLOG 300 UNITS/3 ML VIAL ONE (12:03)
[2021-02-22 15:17] VITALS: BP 138/76
== END 2021-02-22 19:45 | DRG 83 ==
LOC: ERS 13:11 → ERHOLD 18:34 → PACU-TCU 02-22 06:49
PROVIDERS: ADMIT Surgery; ATTEND Surgery
PROC: 0HQ1XZZ Repair Face Skin, External Approach (ICD-10-PCS; principal; 2021-02-21)
DX: S06.6X9A Traumatic subarachnoid hemorrhage with loss of consciousness of unspecified duration, initial encounter (principal); Q61.2 Polycystic kidney, adult type; F33.9 Major depressive disorder, recurrent, unspecified; Z20.822 Contact with and (suspected) exposure to COVID-19; S01.81XA Laceration without foreign body of other part of head, initial encounter; I25.10 Atherosclerotic heart disease of native coronary artery without angina pectoris; E78.5 Hyperlipidemia, unspecified; E78.00 Pure hypercholesterolemia, unspecified; J44.9 Chronic obstructive pulmonary disease, unspecified; Z96.641 Presence of right artificial hip joint; F41.9 Anxiety disorder, unspecified; N18.9 Chronic kidney disease, unspecified; I12.9 Hypertensive chronic kidney disease with stage 1 through stage 4 chronic kidney disease, or unspecified chronic kidney disease; E11.22 Type 2 diabetes mellitus with diabetic chronic kidney disease; E11.51 Type 2 diabetes mellitus with diabetic peripheral angiopathy without gangrene; N39.46 Mixed incontinence; R29.6 Repeated falls; R40.2342 Coma scale, best motor response, flexion withdrawal, at arrival to emergency department; R40.2132 Coma scale, eyes open, to sound, at arrival to emergency department; R40.2252 Coma scale, best verbal response, oriented, at arrival to emergency department; W18.30XA Fall on same level, unspecified, initial encounter; Y92.002 Bathroom of unspecified non-institutional (private) residence as the place of occurrence of the external cause; Z79.899 Other long term (current) drug therapy; Z95.5 Presence of coronary angioplasty implant and graft; Z98.42 Cataract extraction status, left eye; Z98.41 Cataract extraction status, right eye; Z90.710 Acquired absence of both cervix and uterus; Z79.4 Long term (current) use of insulin; Z79.82 Long term (current) use of aspirin; Z88.6 Allergy status to analgesic agent; Z88.5 Allergy status to narcotic agent; Z85.828 Personal history of other malignant neoplasm of skin; Z95.1 Presence of aortocoronary bypass graft; Z91.81 History of falling
CPT/HCPCS: 12013; 36415; 36416; 70450; 71045; 72125; 72170; 80048; 80053; 83735; 84100; 85025; 85610; 85730; 93005; G0390; J1815; J3475; J7050; U0002

== ENCOUNTER 2021-03-18 13:13 | Outpatient (CLI) | payer MEDICARE | END 2021-03-18 13:14 | disposition home or self-care (01) | LOC: BICCT 13:13 | PROVIDERS: ATTEND Neurological Surgery | DX: S06.6X9S Traumatic subarachnoid hemorrhage with loss of consciousness of unspecified duration, sequela (principal) | CPT/HCPCS: 70450 ==

== ENCOUNTER 2021-06-07 12:28 | Emergency (ER) | payer MEDICARE ==
[2021-06-07 13:36] LABS: #Eosinphils 0.3 thou/uL (0.0-0.7); #Lymphocytes 0.9 thou/uL (1.20-3.40); #Monocytes 0.4 thou/uL (0.11-0.59); #Neutrophils 4.9 thou/uL (1.40-6.50); %Basophils 0.4 % (0.0-1.0); %Eosinophils 5.1 % (0.0-10.0); %Lymphocytes 13.1 % (21.0-51.0); %Monocytes 6.5 % (0.0-10.0); %Neutrophils 74.8 % (42.0-75.0); Hemoglobin 10.9 g/dL (12.0-16.0); Mean Corpuscular HGB CONC 35.3 g/dL (32.0-36.0); Mean Corpuscular Hemoglobin 33.2 pg (27.0-31.0); Mean Corpuscular Volume 94.1 fL (78.0-98.0); Mean Platelet Volume 6.8 fL (7.4-10.4); Platelet Count 186 thou/uL (130-400); RBC Distribution Width 11.3 % (11.5-14.5); Red Blood Cell (RBC) Count 3.28 mill/uL (4.20-5.40); White Blood Cell (WBC) Count 6.5 thou/uL (4.8-10.8)
[2021-06-07 14:00] LABS: ALT (SGPT) 35 U/L (8-55); AST (SGOT) 29 U/L (5-34); Albumin 3.9 g/dL (3.4-4.8); Alkaline Phosphatase 117 U/L (40-110); Anion Gap 12 mmol/L (10-20); BUN (Urea Nitrogen) 34 mg/dL (9.8-20.1); Bilirubin, Total 0.5 mg/dL (0.2-1.2); Calc. Creatinine Clearance 0 mL/min (70-130); Calcium 9.5 mg/dL (7.8-10.44); Carbon Dioxide 28 mmol/L (23-31); Chloride 103 mmol/L (98-107); Globulin 1.9 g/dL (2.4-3.5); Glucose 288 mg/dL (83-110); Lipase 41 U/L (8-78); Potassium 3.9 mmol/L (3.5-5.1); Protein, Total 5.8 g/dL (5.8-8.1); Sodium 139 mmol/L (136-145)
[2021-06-07 14:11] LABS: Bilirubin Negative (Negative); Blood, Urine Negative (Negative); Clarity Clear (Clear); Glucose, Urine (Dipstick) 300 mg/dL (Negative); Ketone, Urine Negative (Negative); Leukocyte Negative Leu/uL (Negative); Nitrite Negative (Negative); Protein, Urine (Dipstick) Negative (Neg-Trace); Specific Gravity, Urine 1.012 (1.002-1.036); Urobilinogen Normal mg/dL (Less than 2); pH, Urine 6.5 (5.0-9.0)
== END 2021-06-07 16:20 | disposition home or self-care (01) ==
LOC: ERS 12:28
DX: R19.7 Diarrhea, unspecified (principal); E11.9 Type 2 diabetes mellitus without complications; I25.10 Atherosclerotic heart disease of native coronary artery without angina pectoris; J44.9 Chronic obstructive pulmonary disease, unspecified; E78.5 Hyperlipidemia, unspecified
CPT/HCPCS: 36415; 71045; 80053; 81003; 83690; 84484; 85025; 87086; 93005

== ENCOUNTER 2021-07-15 12:32 | Emergency (ER) | payer OTHER, MEDICARE ==
[2021-07-15 14:31] LABS: Bilirubin Negative (Negative); Blood, Urine Negative (Negative); Clarity Clear (Clear); Glucose, Urine (Dipstick) 200 mg/dL (Negative); Ketone, Urine Negative (Negative); Leukocyte Negative Leu/uL (Negative); Nitrite Negative (Negative); Protein, Urine (Dipstick) Negative (Neg-Trace); Specific Gravity, Urine 1.008 (1.002-1.036); Urobilinogen Normal mg/dL (Less than 2); pH, Urine 5.5 (5.0-9.0)
[2021-07-15 15:06] LABS: #Eosinphils 0.3 thou/uL (0.0-0.7); #Lymphocytes 1.1 thou/uL (1.20-3.40); #Monocytes 0.4 thou/uL (0.11-0.59); #Neutrophils 6.5 thou/uL (1.40-6.50); %Basophils 0.2 % (0.0-1.0); %Eosinophils 3.7 % (0.0-10.0); %Lymphocytes 13.1 % (21.0-51.0); %Monocytes 5.3 % (0.0-10.0); %Neutrophils 77.7 % (42.0-75.0); Hemoglobin 11.3 g/dL (12.0-16.0); Mean Corpuscular HGB CONC 34.2 g/dL (32.0-36.0); Mean Corpuscular Hemoglobin 31.4 pg (27.0-31.0); Mean Corpuscular Volume 91.6 fL (78.0-98.0); Mean Platelet Volume 7.1 fL (7.4-10.4); Platelet Count 149 thou/uL (130-400); RBC Distribution Width 10.6 % (11.5-14.5); Red Blood Cell (RBC) Count 3.61 mill/uL (4.20-5.40); White Blood Cell (WBC) Count 8.3 thou/uL (4.8-10.8)
[2021-07-15 15:26] LABS: ALT (SGPT) 32 U/L (8-55); AST (SGOT) 34 U/L (5-34); Albumin 3.7 g/dL (3.4-4.8); Alkaline Phosphatase 121 U/L (40-110); Anion Gap 13 mmol/L (10-20); BUN (Urea Nitrogen) 31 mg/dL (9.8-20.1); Bilirubin, Total 0.3 mg/dL (0.2-1.2); CK (CPK) 88 U/L (29-168); Calc. Creatinine Clearance 0 mL/min (70-130); Calcium 9.6 mg/dL (7.8-10.44); Carbon Dioxide 25 mmol/L (23-31); Chloride 101 mmol/L (98-107); Globulin 2.1 g/dL (2.4-3.5); Glucose 238 mg/dL (83-110); Potassium 3.4 mmol/L (3.5-5.1); Protein, Total 5.8 g/dL (5.8-8.1); Sodium 136 mmol/L (136-145)
== END 2021-07-15 17:30 | disposition home or self-care (01) ==
LOC: ERS 12:32
DX: S09.90XA Unspecified injury of head, initial encounter (principal); R19.7 Diarrhea, unspecified; I25.10 Atherosclerotic heart disease of native coronary artery without angina pectoris; E11.9 Type 2 diabetes mellitus without complications; E78.00 Pure hypercholesterolemia, unspecified; E78.5 Hyperlipidemia, unspecified; J44.9 Chronic obstructive pulmonary disease, unspecified; Z79.899 Other long term (current) drug therapy; W01.0XXA Fall on same level from slipping, tripping and stumbling without subsequent striking against object, initial encounter
CPT/HCPCS: 36415; 51701; 70450; 80053; 81003; 82550; 83735; 84484; 85025; 87086; 93005

== ENCOUNTER 2021-10-28 13:24 | Emergency (ER) | payer MEDICARE ==
[2021-10-28 14:29] LABS: #Eosinphils 0.1 thou/uL (0.0-0.7); #Lymphocytes 1.4 thou/uL (1.20-3.40); #Monocytes 0.5 thou/uL (0.11-0.59); #Neutrophils 5.4 thou/uL (1.40-6.50); %Basophils 0.7 % (0.0-1.0); %Eosinophils 0.8 % (0.0-10.0); %Lymphocytes 18.4 % (21.0-51.0); %Monocytes 6.2 % (0.0-10.0); %Neutrophils 73.9 % (42.0-75.0); Hemoglobin 11.3 g/dL (12.0-16.0); Mean Corpuscular HGB CONC 33.9 g/dL (32.0-36.0); Mean Corpuscular Hemoglobin 31.9 pg (27.0-31.0); Mean Platelet Volume 6.6 fL (7.4-10.4); Platelet Count 208 thou/uL (130-400); RBC Distribution Width 12.7 % (11.5-14.5); Red Blood Cell (RBC) Count 3.54 mill/uL (4.20-5.40); White Blood Cell (WBC) Count 7.3 thou/uL (4.8-10.8)
[2021-10-28 14:52] LABS: ALT (SGPT) 46 U/L (8-55); AST (SGOT) 37 U/L (5-34); Alkaline Phosphatase 126 U/L (40-110); Anion Gap 13 mmol/L (10-20); BUN (Urea Nitrogen) 35 mg/dL (9.8-20.1); Bilirubin, Total 0.3 mg/dL (0.2-1.2); Calc. Creatinine Clearance 0 mL/min (70-130); Calcium 9.2 mg/dL (7.8-10.44); Carbon Dioxide 29 mmol/L (23-31); Chloride 101 mmol/L (98-107); Globulin 2.4 g/dL (2.4-3.5); Glucose 265 mg/dL (83-110); Potassium 3.8 mmol/L (3.5-5.1); Protein, Total 6.4 g/dL (5.8-8.1); Sodium 139 mmol/L (136-145)
== END 2021-10-28 17:25 | disposition home or self-care (01) ==
LOC: ERS 13:24
DX: I95.1 Orthostatic hypotension (principal); E11.9 Type 2 diabetes mellitus without complications; E78.5 Hyperlipidemia, unspecified; J44.9 Chronic obstructive pulmonary disease, unspecified
CPT/HCPCS: 36415; 80053; 85025; 93005

== ENCOUNTER 2021-11-12 09:47 | Inpatient (IN) | payer MEDICARE ==
[2021-11-12 10:45] LABS: #Lymphocytes 0.8 thou/uL (1.20-3.40); #Monocytes 0.5 thou/uL (0.11-0.59); #Neutrophils 12.5 thou/uL (1.40-6.50); %Basophils 0.1 % (0.0-1.0); %Eosinophils 0.3 % (0.0-10.0); %Lymphocytes 5.5 % (21.0-51.0); %Monocytes 3.7 % (0.0-10.0); %Neutrophils 90.3 % (42.0-75.0); Hemoglobin 11.2 g/dL (12.0-16.0); Mean Corpuscular HGB CONC 32.5 g/dL (32.0-36.0); Mean Corpuscular Hemoglobin 31.3 pg (27.0-31.0); Mean Corpuscular Volume 96.5 fL (78.0-98.0); Mean Platelet Volume 6.5 fL (7.4-10.4); Platelet Count 159 thou/uL (130-400); Red Blood Cell (RBC) Count 3.58 mill/uL (4.20-5.40); White Blood Cell (WBC) Count 13.9 thou/uL (4.8-10.8)
[2021-11-12 11:09] LABS: ALT (SGPT) 46 U/L (8-55); AST (SGOT) 29 U/L (5-34); Albumin 3.9 g/dL (3.4-4.8); Alkaline Phosphatase 123 U/L (40-110); Anion Gap 13 mmol/L (10-20); BUN (Urea Nitrogen) 33 mg/dL (9.8-20.1); Bilirubin, Total 0.5 mg/dL (0.2-1.2); CK (CPK) 41 U/L (29-168); Calc. Creatinine Clearance 0 mL/min (70-130); Carbon Dioxide 28 mmol/L (23-31); Chloride 103 mmol/L (98-107); Globulin 2.5 g/dL (2.4-3.5); Glucose 87 mg/dL (83-110); Potassium 4.1 mmol/L (3.5-5.1); Protein, Total 6.4 g/dL (5.8-8.1); Sodium 140 mmol/L (136-145)
[2021-11-12 12:09] LABS: Bacteria/HPF 1+ HPF (None Seen); Bilirubin Negative (Negative); Blood, Urine Negative (Negative); Clarity Turbid (Clear); Glucose, Urine (Dipstick) Normal (Negative); Ketone, Urine Negative (Negative); Leukocyte 250 Leu/uL (Negative); Nitrite Negative (Negative); Protein, Urine (Dipstick) Negative (Neg-Trace); RBC/HPF None Seen HPF (0-3); Squamous Epithelial 0-3 HPF (0-3); Urobilinogen Normal mg/dL (Less than 2)
[2021-11-12] MEDS ORDERED: cefTRIAXone\\ROCEPHIN 2 GM VIAL ONE (13:32)
[2021-11-12] MEDS ORDERED: Ciprofloxacin HCL/Dexameth Otic Drops 7.5 ml Bottle ONE (13:34)
[2021-11-12] MEDS ORDERED: Dextrose 50% Abboject 50 ML SYRINGE SLOW IVP PRN (14:50)
[2021-11-12] MEDS ORDERED: hydrALAZINE 20 MG/ML VIAL SLOW IVP PRN (14:50)
[2021-11-12] MEDS ORDERED: Ondansetron ODT 4 MG TAB PO PRN (14:50)
[2021-11-12] MEDS ORDERED: Dextrose 5% in Water 1,000 ML IV PRN (14:50)
[2021-11-12 14:55] VITALS: BMI 17.6
[2021-11-12] MEDS: Lactated Ringer's 1,000 ML IV SCH (15:36)
[2021-11-12] MEDS: HumaLOG 300 UNITS/3 ML VIAL SC PRN ×2 (16:56→19:40)
[2021-11-12] MEDS: Acetaminophen 325 MG TAB PO PRN (19:38)
[2021-11-12] MEDS ORDERED: Ciprofloxacin 0.2% Otic (0.25ML CONTAINER) EA EAR SCH (21:00)
[2021-11-12 21:47] LABS: SARS-CoV-2 PCR by NAA Not Detected (NotDetected)
[2021-11-13] MEDS: HumaLOG 300 UNITS/3 ML VIAL SC PRN ×3 (03:58→19:58)
[2021-11-13] MEDS: Lactated Ringer's 1,000 ML IV SCH ×2 (03:59→19:52)
[2021-11-13 06:55] LABS: #Basophils 0.1 thou/uL (0.0-0.2); #Eosinphils 0.2 thou/uL (0.0-0.7); #Lymphocytes 1.1 thou/uL (1.20-3.40); #Monocytes 0.3 thou/uL (0.11-0.59); #Neutrophils 5.6 thou/uL (1.40-6.50); %Basophils 0.8 % (0.0-1.0); %Eosinophils 2.3 % (0.0-10.0); %Lymphocytes 14.8 % (21.0-51.0); %Monocytes 4.3 % (0.0-10.0); %Neutrophils 77.7 % (42.0-75.0); Hemoglobin 10.9 g/dL (12.0-16.0); Mean Corpuscular HGB CONC 33.8 g/dL (32.0-36.0); Mean Corpuscular Hemoglobin 32.9 pg (27.0-31.0); Mean Corpuscular Volume 97.3 fL (78.0-98.0); Platelet Count 147 thou/uL (130-400); RBC Distribution Width 13.3 % (11.5-14.5); Red Blood Cell (RBC) Count 3.32 mill/uL (4.20-5.40); White Blood Cell (WBC) Count 7.2 thou/uL (4.8-10.8)
[2021-11-13 07:18] LABS: Anion Gap 14 mmol/L (10-20); BUN (Urea Nitrogen) 31 mg/dL (9.8-20.1); Calc. Creatinine Clearance 22 mL/min (70-130); Calcium 8.8 mg/dL (7.8-10.44); Carbon Dioxide 28 mmol/L (23-31); Chloride 105 mmol/L (98-107); Glucose 103 mg/dL (83-110); Potassium 3.9 mmol/L (3.5-5.1); Sodium 143 mmol/L (136-145)
[2021-11-13] MEDS: Ciprofloxacin HCL/Dexameth Otic Drops 7.5 ml Bottle EA EAR SCH ×2 (08:52→19:53)
[2021-11-13] MEDS: Acetaminophen 325 MG TAB PO PRN (12:01)
[2021-11-13] MEDS: cefTRIAXone\\ROCEPHIN 1 GM in Sodium Chloride 0.9% 100 ML IVPB SCH (12:17)
[2021-11-13] MEDS ORDERED: Polyethylene Glycol 3350 17 GM Packet PO PRN (12:58)
[2021-11-13] MEDS: Insulin Glargine 30 UNITS/0.3 ML VIAL SC SCH (19:55)
[2021-11-13] MEDS ORDERED: Ezetimibe 10 MG TAB PO SCH (21:00)
[2021-11-13] MEDS ORDERED: Atorvastatin Calcium 40 MG TAB PO SCH (21:00)
[2021-11-13] MEDS ORDERED: Gabapentin 300 MG CAP PO SCH (21:00)
[2021-11-14] MEDS: HumaLOG 300 UNITS/3 ML VIAL SC PRN ×2 (06:03→12:11)
[2021-11-14] MEDS: Lactated Ringer's 1,000 ML IV SCH (08:49)
[2021-11-14] MEDS: Insulin Glargine 30 UNITS/0.3 ML VIAL SC SCH (08:51)
[2021-11-14] MEDS: Ciprofloxacin HCL/Dexameth Otic Drops 7.5 ml Bottle EA EAR SCH (08:51)
[2021-11-14] MEDS ORDERED: Nitrofurantoin Macrocrystal 50 MG CAP PO SCH (12:45)
[2021-11-14] MEDS ORDERED: Ciprofloxacin 500 MG TAB PO SCH (13:15)
[2021-11-14] MEDS: cefTRIAXone\\ROCEPHIN 1 GM in Sodium Chloride 0.9% 100 ML IVPB SCH (13:26)
[2021-11-14 14:51] VITALS: BP 162/71; TEMP 98
== END 2021-11-14 15:39 | disposition home or self-care (01) | DRG 689 ==
LOC: ERS 09:47 → T4-A 13:31
PROVIDERS: ADMIT Internal Medicine; ATTEND Internal Medicine
DX: N39.0 Urinary tract infection, site not specified (principal); G93.41 Metabolic encephalopathy; I25.10 Atherosclerotic heart disease of native coronary artery without angina pectoris; E78.5 Hyperlipidemia, unspecified; E78.00 Pure hypercholesterolemia, unspecified; J44.9 Chronic obstructive pulmonary disease, unspecified; Z96.641 Presence of right artificial hip joint; F41.9 Anxiety disorder, unspecified; F32.A Depression, unspecified; H60.93 Unspecified otitis externa, bilateral; I48.91 Unspecified atrial fibrillation; E11.51 Type 2 diabetes mellitus with diabetic peripheral angiopathy without gangrene; N18.30 Chronic kidney disease, stage 3 unspecified; E11.22 Type 2 diabetes mellitus with diabetic chronic kidney disease; E86.0 Dehydration; Z20.822 Contact with and (suspected) exposure to COVID-19; Z95.5 Presence of coronary angioplasty implant and graft; Z95.1 Presence of aortocoronary bypass graft; Z90.710 Acquired absence of both cervix and uterus; Z88.5 Allergy status to narcotic agent; Z88.8 Allergy status to other drugs, medicaments and biological substances; Z79.4 Long term (current) use of insulin; Z79.899 Other long term (current) drug therapy; Z98.890 Other specified postprocedural states
CPT/HCPCS: 36415; 36416; 51701; 70450; 71045; 80048; 80053; 81003; 81015; 82550; 84484; 85025; 93005; 96365; J0696; J1815; J3490; J7120; U0003; U0005

== ENCOUNTER 2022-05-07 18:13 | Inpatient (IN) | payer MEDICARE ==
[2022-05-07 19:30] LABS: #Lymphocytes 1.1 thou/uL (1.20-3.40); #Monocytes 0.6 thou/uL (0.11-0.59); #Neutrophils 7.7 thou/uL (1.40-6.50); %Basophils 0.2 % (0.0-1.0); %Eosinophils 0.5 % (0.0-10.0); %Lymphocytes 11.8 % (21.0-51.0); %Monocytes 5.9 % (0.0-10.0); %Neutrophils 81.6 % (42.0-75.0); Hemoglobin 11.2 g/dL (12.0-16.0); Mean Corpuscular HGB CONC 33.2 g/dL (32.0-36.0); Mean Corpuscular Hemoglobin 30.3 pg (27.0-31.0); Mean Corpuscular Volume 91.3 fl (78.0-98.0); Mean Platelet Volume 6.7 fL (7.4-10.4); Platelet Count 195 10x3/uL (130-400); RBC Distribution Width 11.7 % (11.5-14.5); Red Blood Cell (RBC) Count 3.71 mill/uL (4.20-5.40); White Blood Cell (WBC) Count 9.4 10x3/uL (4.8-10.8)
[2022-05-07 19:56] LABS: ALT (SGPT) 18 U/L (8-55); AST (SGOT) 23 U/L (5-34); Albumin 4.2 g/dL (3.4-4.8); Alkaline Phosphatase 104 U/L (40-110); Anion Gap 16 mmol/L (10-20); BUN (Urea Nitrogen) 38 mg/dL (9.8-20.1); Bilirubin, Total 0.4 mg/dL (0.2-1.2); Calc. Creatinine Clearance 0 mL/min (70-130); Carbon Dioxide 27 mmol/L (23-31); Chloride 99 mmol/L (98-107); Estimated GFR 31; Glucose 90 mg/dL (83-110); Potassium 3.6 mmol/L (3.5-5.1); Protein, Total 6.2 g/dL (5.8-8.1); Sodium 138 mmol/L (136-145)
[2022-05-07 20:21] LABS: Bacteria/HPF 1+ HPF (None Seen); Bilirubin Negative (Negative); Blood, Urine Negative (Negative); Clarity Clear (Clear); Glucose, Urine (Dipstick) Normal (Negative); Ketone, Urine Negative (Negative); Leukocyte 250 Leu/uL (Negative); Nitrite Negative (Negative); Protein, Urine (Dipstick) Negative (Neg-Trace); RBC/HPF 0-3 HPF (0-3); Specific Gravity, Urine 1.011 (1.002-1.036); Squamous Epithelial None Seen HPF (0-3); Urobilinogen Normal mg/dL (Less than 2); WBC/HPF 21-50 HPF (0-3); pH, Urine 5.5 (5.0-9.0)
[2022-05-07 20:57] LABS: SARS-CoV-2 NAA Rapid Test Not Detected (NotDetected)
[2022-05-07] MEDS ORDERED: cefTRIAXone\\ROCEPHIN 1 GM VIAL ONE (21:27)
[2022-05-07] MEDS ORDERED: Ondansetron PF 4 MG/2 ML Vial IVP PRN (21:46)
[2022-05-07] MEDS ORDERED: Dextrose 50% Abboject 50 ML SYRINGE SLOW IVP PRN (21:46)
[2022-05-07] MEDS ORDERED: Acetaminophen 325 MG TAB PO PRN (21:46)
[2022-05-07] MEDS ORDERED: HumaLOG 300 UNITS/3 ML VIAL SC PRN ×2 (21:46)
[2022-05-07] MEDS ORDERED: Dextrose 5% in Water 1,000 ML IV PRN (21:46)
[2022-05-07] MEDS ORDERED: Acetaminophen 650 MG Suppository PR PRN (21:46)
[2022-05-07] MEDS ORDERED: Ondansetron ODT 4 MG TAB PO PRN (21:46)
[2022-05-07 22:59] VITALS: BMI 16.7
[2022-05-08 06:38] LABS: #Eosinphils 0.1 thou/uL (0.0-0.7); #Monocytes 0.5 thou/uL (0.11-0.59); #Neutrophils 6.8 thou/uL (1.40-6.50); %Basophils 0.2 % (0.0-1.0); %Eosinophils 0.9 % (0.0-10.0); %Lymphocytes 11.7 % (21.0-51.0); %Monocytes 6.4 % (0.0-10.0); %Neutrophils 80.8 % (42.0-75.0); Hemoglobin 10.4 g/dL (12.0-16.0); Mean Corpuscular HGB CONC 33.6 g/dL (32.0-36.0); Mean Corpuscular Hemoglobin 30.4 pg (27.0-31.0); Mean Corpuscular Volume 90.5 fl (78.0-98.0); Platelet Count 180 10x3/uL (130-400); RBC Distribution Width 11.7 % (11.5-14.5); Red Blood Cell (RBC) Count 3.43 mill/uL (4.20-5.40); White Blood Cell (WBC) Count 8.4 10x3/uL (4.8-10.8)
[2022-05-08 06:58] LABS: Anion Gap 12 mmol/L (10-20); BUN (Urea Nitrogen) 35 mg/dL (9.8-20.1); Calc. Creatinine Clearance 22 mL/min (70-130); Calcium 8.8 mg/dL (7.8-10.44); Carbon Dioxide 27 mmol/L (23-31); Chloride 104 mmol/L (98-107); Estimated GFR 34; Glucose 115 mg/dL (83-110); Potassium 3.5 mmol/L (3.5-5.1); Sodium 139 mmol/L (136-145)
[2022-05-08] MEDS: Enoxaparin Sodium 30 MG/0.3 ML SYRINGE SC SCH (08:03)
[2022-05-09] MEDS: Enoxaparin Sodium 30 MG/0.3 ML SYRINGE SC SCH (07:55)
[2022-05-09 08:35] VITALS: BP 136/76; TEMP 98
[2022-05-09] MEDS ORDERED: Cipro 250 MG TAB PO SCH ×2 (10:00→20:00)
[2022-05-10] MEDS ORDERED: FLU VACC QS2022-23(65YR UP)/PF 240 MCG/0.7 ML SYRINGE IM ONE (09:00)
== END 2022-05-09 19:25 | disposition home or self-care (01) | DRG 690 ==
LOC: ERS 18:13 → T4-B 20:54 → OBSVTOIN 05-08 19:27
PROVIDERS: ADMIT Internal Medicine; ATTEND Internal Medicine
DX: N39.0 Urinary tract infection, site not specified (principal); G93.49 Other encephalopathy; Z20.822 Contact with and (suspected) exposure to COVID-19; E78.5 Hyperlipidemia, unspecified; I25.10 Atherosclerotic heart disease of native coronary artery without angina pectoris; H91.3 Deaf nonspeaking, not elsewhere classified; I48.91 Unspecified atrial fibrillation; F40.240 Claustrophobia; N18.32 Chronic kidney disease, stage 3b; D63.1 Anemia in chronic kidney disease; I12.9 Hypertensive chronic kidney disease with stage 1 through stage 4 chronic kidney disease, or unspecified chronic kidney disease; B96.1 Klebsiella pneumoniae [K. pneumoniae] as the cause of diseases classified elsewhere; E11.22 Type 2 diabetes mellitus with diabetic chronic kidney disease; Z95.1 Presence of aortocoronary bypass graft; Z88.6 Allergy status to analgesic agent; Z88.5 Allergy status to narcotic agent; Z88.8 Allergy status to other drugs, medicaments and biological substances; Z79.899 Other long term (current) drug therapy; Z79.4 Long term (current) use of insulin; Z90.710 Acquired absence of both cervix and uterus; Z98.890 Other specified postprocedural states
CPT/HCPCS: 36415; 36416; 70450; 71045; 80048; 80053; 81003; 81015; 83880; 84484; 85025; 87077; 87086; 87186; 93005; J0696; J1650

== ENCOUNTER 2022-06-14 09:01 | Emergency (ER) | payer MEDICARE | END 2022-06-14 15:42 | disposition home or self-care (01) | LOC: ERS 09:01 | DX: I95.1 Orthostatic hypotension (principal); I25.10 Atherosclerotic heart disease of native coronary artery without angina pectoris; E11.9 Type 2 diabetes mellitus without complications; E78.00 Pure hypercholesterolemia, unspecified; J44.9 Chronic obstructive pulmonary disease, unspecified; Z79.899 Other long term (current) drug therapy | CPT/HCPCS: 36416; 93005; 96360 ==

== ENCOUNTER 2022-06-24 13:39 | Emergency (ER) | payer MEDICARE | END 2022-06-24 16:57 | disposition home or self-care (01) | LOC: ERS 13:39 | DX: E86.0 Dehydration (principal); E11.9 Type 2 diabetes mellitus without complications; E78.00 Pure hypercholesterolemia, unspecified; J44.9 Chronic obstructive pulmonary disease, unspecified; Z79.899 Other long term (current) drug therapy; Z79.4 Long term (current) use of insulin | CPT/HCPCS: 99284 ==

== ENCOUNTER 2022-07-02 09:17 | Inpatient (IN) | payer MEDICARE ==
[2022-07-02 10:56] LABS: #Lymphocytes 0.7 thou/uL (1.20-3.40); #Monocytes 0.6 thou/uL (0.11-0.59); #Neutrophils 17.4 thou/uL (1.40-6.50); %Basophils 0.2 % (0.0-1.0); %Eosinophils 0.3 % (0.0-10.0); %Lymphocytes 3.7 % (21.0-51.0); %Monocytes 3.3 % (0.0-10.0); %Neutrophils 92.6 % (42.0-75.0); Hemoglobin 11.8 g/dL (12.0-16.0); Mean Corpuscular HGB CONC 34.5 g/dL (32.0-36.0); Mean Corpuscular Hemoglobin 31.8 pg (27.0-31.0); Mean Corpuscular Volume 92.2 fl (78.0-98.0); Mean Platelet Volume 7.1 fL (7.4-10.4); Platelet Count 185 10x3/uL (130-400); RBC Distribution Width 12.2 % (11.5-14.5); Red Blood Cell (RBC) Count 3.72 mill/uL (4.20-5.40); White Blood Cell (WBC) Count 18.7 10x3/uL (4.8-10.8)
[2022-07-02 11:23] LABS: ALT (SGPT) 78 U/L (8-55); AST (SGOT) 52 U/L (5-34); Albumin 4.1 g/dL (3.4-4.8); Alkaline Phosphatase 138 U/L (40-110); Anion Gap 15 mmol/L (10-20); BUN (Urea Nitrogen) 38 mg/dL (9.8-20.1); Bilirubin, Total 0.5 mg/dL (0.2-1.2); CK (CPK) 52 U/L (29-168); Calc. Creatinine Clearance 0 mL/min (70-130); Carbon Dioxide 27 mmol/L (23-31); Chloride 101 mmol/L (98-107); Estimated GFR 25; Globulin 2.7 g/dL (2.4-3.5); Glucose 245 mg/dL (83-110); Lipase 110 U/L (8-78); Potassium 4.2 mmol/L (3.5-5.1); Protein, Total 6.8 g/dL (5.8-8.1); Sodium 139 mmol/L (136-145)
[2022-07-02 11:42] LABS: CKMB 2.1 ng/mL (0-6.6)
[2022-07-02] MEDS ORDERED: Aspirin Chewable 81 MG TAB ONE (12:55)
[2022-07-02] MEDS ORDERED: Cefepime 2 GM VIAL ONE (14:10)
[2022-07-02] MEDS ORDERED: Vancomycin HCl 750 MG in Sodium Chloride 0.9% 250 ML 250 ML IVPB SCH (14:45)
[2022-07-02] MEDS ORDERED: Ondansetron ODT 4 MG TAB PO PRN (15:11)
[2022-07-02] MEDS ORDERED: Acetaminophen 325 MG TAB PO PRN (15:11)
[2022-07-02] MEDS ORDERED: Acetaminophen 650 MG Suppository PR PRN (15:11)
[2022-07-02] MEDS ORDERED: Ondansetron PF 4 MG/2 ML Vial IVP PRN (15:11)
[2022-07-02] MEDS ORDERED: Dextrose 5% in Water 1,000 ML IV PRN (15:15)
[2022-07-02] MEDS ORDERED: Dextrose 50% Abboject 50 ML SYRINGE SLOW IVP PRN (15:15)
[2022-07-02] MEDS ORDERED: Vancomycin 1 GM in Premix Bag 1 BAG IVPB SCH (15:15)
[2022-07-02 15:57] LABS: Troponin I 0.381 ng/mL (< 0.028)
[2022-07-02] MEDS: Sodium Chloride 0.9% 1,000 ML IV SCH (16:29)
[2022-07-02 18:02] LABS: SARS-CoV-2 NAA Rapid Test Not Detected (NotDetected)
[2022-07-02 18:16] LABS: Troponin I 0.608 ng/mL (< 0.028)
[2022-07-02 18:28] LABS: HBCM Index 0.18 S/CO (0-0.79); HBSAg Index 0.35 S/CO (0-0.99); Hep A IgM AB Non-Reactive (NonReactive); Hep A IgM S/CO 0.12 S/CO (0-0.79); Hep B Surf Ag Non-Reactive S/CO (NonReactive); Hep C IgG Ab Non-Reactive (NonReactive); Hep C Index 0.08 S/CO (0-0.79); Hepatitis B Core IgM Abs Non-Reactive (NonReactive)
[2022-07-02 20:27] VITALS: BMI 19.5
[2022-07-02] MEDS ORDERED: Vancomycin Dose by Levels Sliding Scale (Wt <71) FS SCH (21:15)
[2022-07-02] MEDS: Heparin 5,000 UNITS/ML VIAL SC SCH (22:04)
[2022-07-03] MEDS ORDERED: Cefepime 1 GM in Sodium Chloride 0.9% 100 ML IVPB SCH (02:00)
[2022-07-03 03:10] LABS: Bacteria/HPF None Seen HPF (None Seen); Bilirubin Negative (Negative); Blood, Urine Negative (Negative); CAUTI Indications for Culture Alt mental st,lethar; Clarity Clear (Clear); Glucose, Urine (Dipstick) 100 mg/dL (Negative); Ketone, Urine Negative (Negative); Leukocyte 500 Leu/uL (Negative); Nitrite Negative (Negative); Protein, Urine (Dipstick) 20 mg/dL (Neg-Trace); RBC/HPF 0-3 HPF (0-3); Specific Gravity, Urine 1.014 (1.002-1.036); Squamous Epithelial 0-3 HPF (0-3); Urobilinogen Normal mg/dL (Less than 2); WBC/HPF 21-50 HPF (0-3)
[2022-07-03 03:12] LABS: Urine Culture Reflex Yes Yes
[2022-07-03 05:08] LABS: #Eosinphils 0.2 thou/uL (0.0-0.7); #Lymphocytes 1.1 thou/uL (1.20-3.40); #Monocytes 0.3 thou/uL (0.11-0.59); %Basophils 0.2 % (0.0-1.0); %Eosinophils 2.7 % (0.0-10.0); %Monocytes 4.8 % (0.0-10.0); %Neutrophils 75.3 % (42.0-75.0); Hemoglobin 9.5 g/dL (12.0-16.0); Mean Corpuscular HGB CONC 34.6 g/dL (32.0-36.0); Mean Corpuscular Hemoglobin 31.8 pg (27.0-31.0); Mean Corpuscular Volume 91.9 fl (78.0-98.0); Mean Platelet Volume 7.4 fL (7.4-10.4); Platelet Count 140 10x3/uL (130-400); RBC Distribution Width 12.3 % (11.5-14.5); Red Blood Cell (RBC) Count 2.99 mill/uL (4.20-5.40); White Blood Cell (WBC) Count 6.7 10x3/uL (4.8-10.8)
[2022-07-03 05:14] LABS: Anion Gap 12 mmol/L (10-20); BUN (Urea Nitrogen) 35 mg/dL (9.8-20.1); Calc. Creatinine Clearance 21 mL/min (70-130); Calcium 9.1 mg/dL (7.8-10.44); Carbon Dioxide 25 mmol/L (23-31); Chloride 106 mmol/L (98-107); Estimated GFR 35; Glucose 181 mg/dL (83-110); Potassium 3.8 mmol/L (3.5-5.1); Sodium 139 mmol/L (136-145)
[2022-07-03] MEDS: Heparin 5,000 UNITS/ML VIAL SC SCH ×2 (09:40→21:23)
[2022-07-03] MEDS: Sodium Chloride 0.9% 1,000 ML IV SCH ×2 (09:44→19:31)
[2022-07-03] MEDS: Insulin Regular 300 UNITS/3 ML VIAL SC PRN ×2 (11:23→21:23)
[2022-07-03 16:05] LABS: Vancomycin, Random 7.6 ug/mL (See Comment)
[2022-07-03] MEDS ORDERED: Vancomycin HCl 750 MG in Sodium Chloride 0.9% 250 ML 250 ML IVPB SCH (17:00)
[2022-07-03] MEDS ORDERED: Aspirin 81 mg Enteric Coated Tablet PO SCH (18:00)
[2022-07-04] MEDS: Sodium Chloride 0.9% 1,000 ML IV SCH (01:50)
[2022-07-04] MEDS ORDERED: Cefepime 1 GM in Sodium Chloride 0.9% 100 ML IVPB SCH (02:00)
[2022-07-04 04:46] LABS: #Eosinphils 0.2 thou/uL (0.0-0.7); #Lymphocytes 1.3 thou/uL (1.20-3.40); #Monocytes 0.3 thou/uL (0.11-0.59); #Neutrophils 4.2 thou/uL (1.40-6.50); %Basophils 0.7 % (0.0-1.0); %Eosinophils 3.1 % (0.0-10.0); %Lymphocytes 20.7 % (21.0-51.0); %Monocytes 5.7 % (0.0-10.0); %Neutrophils 69.8 % (42.0-75.0); Hemoglobin 10.1 g/dL (12.0-16.0); Mean Corpuscular HGB CONC 34.9 g/dL (32.0-36.0); Mean Corpuscular Hemoglobin 32.4 pg (27.0-31.0); Mean Corpuscular Volume 92.9 fl (78.0-98.0); Mean Platelet Volume 7.1 fL (7.4-10.4); Platelet Count 167 10x3/uL (130-400); RBC Distribution Width 12.2 % (11.5-14.5); Red Blood Cell (RBC) Count 3.11 mill/uL (4.20-5.40)
[2022-07-04 05:11] LABS: Anion Gap 11 mmol/L (10-20); BUN (Urea Nitrogen) 26 mg/dL (9.8-20.1); Calc. Creatinine Clearance 21 mL/min (70-130); Calcium 9.3 mg/dL (7.8-10.44); Carbon Dioxide 26 mmol/L (23-31); Chloride 105 mmol/L (98-107); Estimated GFR 36; Glucose 194 mg/dL (83-110); Magnesium 1.3 mg/dL (1.6-2.6); Potassium 3.9 mmol/L (3.5-5.1); Sodium 138 mmol/L (136-145)
[2022-07-04 05:20] LABS: Critical Call Chem Troponin I RESULT DECREASING
[2022-07-04] MEDS: Insulin Regular 300 UNITS/3 ML VIAL SC PRN ×3 (05:25→20:38)
[2022-07-04 05:38] LABS: CKMB 1.4 ng/mL (0-6.6)
[2022-07-04] MEDS ORDERED: Aspirin 81 mg Enteric Coated Tablet PO SCH (09:00)
[2022-07-04] MEDS: Heparin 5,000 UNITS/ML VIAL SC SCH ×2 (09:23→20:32)
[2022-07-04] MEDS ORDERED: Electrolyte Replacement Protocol 1 EACH FS SCH (11:15)
[2022-07-04] MEDS ORDERED: Magnesium Sulfate In Water 4 GM in Premix Bag 1 BAG IVPB SCH (14:00)
[2022-07-04 22:21] VITALS: BP 145/69; TEMP 98.3
[2022-07-05] MEDS ORDERED: FLU VACC QS2022-23(65YR UP)/PF 240 MCG/0.7 ML SYRINGE IM ONE (09:00)
== END 2022-07-04 22:10 | DRG 871 ==
LOC: ERS 09:17 → ERHOLD 14:47 → 2NO 19:49 → OBSVTOIN 07-03 10:05
PROVIDERS: ADMIT Internal Medicine; ATTEND Internal Medicine
DX: A41.9 Sepsis, unspecified organism (principal); G93.41 Metabolic encephalopathy; I21.A1 Myocardial infarction type 2; N17.9 Acute kidney failure, unspecified; N39.0 Urinary tract infection, site not specified; I25.10 Atherosclerotic heart disease of native coronary artery without angina pectoris; E78.5 Hyperlipidemia, unspecified; J44.9 Chronic obstructive pulmonary disease, unspecified; E11.22 Type 2 diabetes mellitus with diabetic chronic kidney disease; I48.91 Unspecified atrial fibrillation; N18.30 Chronic kidney disease, stage 3 unspecified; I12.9 Hypertensive chronic kidney disease with stage 1 through stage 4 chronic kidney disease, or unspecified chronic kidney disease; I45.10 Unspecified right bundle-branch block; Z96.642 Presence of left artificial hip joint; E86.0 Dehydration; E78.00 Pure hypercholesterolemia, unspecified; D63.1 Anemia in chronic kidney disease; Z20.822 Contact with and (suspected) exposure to COVID-19; Z95.5 Presence of coronary angioplasty implant and graft; Z79.4 Long term (current) use of insulin; Z79.899 Other long term (current) drug therapy; Z95.1 Presence of aortocoronary bypass graft; Z98.890 Other specified postprocedural states; Z90.710 Acquired absence of both cervix and uterus; Z88.5 Allergy status to narcotic agent
CPT/HCPCS: 36415; 36416; 71045; 80048; 80053; 80074; 80202; 81001; 82274; 82550; 82553; 83605; 83690; 83735; 84443; 84484; 85025; 87040; 87081; 87086; 93005; J0692; J1644; J1815; J3370; J3475; J3490; J7050; U0002

== ENCOUNTER 2022-08-04 13:26 | Emergency (ER) | payer MEDICARE ==
[2022-08-04 14:13] LABS: #Eosinphils 0.2 thou/uL (0.0-0.7); #Monocytes 0.6 thou/uL (0.11-0.59); #Neutrophils 8.4 thou/uL (1.40-6.50); %Basophils 0.4 % (0.0-1.0); %Eosinophils 1.7 % (0.0-10.0); %Lymphocytes 10.2 % (21.0-51.0); %Monocytes 6.1 % (0.0-10.0); %Neutrophils 81.7 % (42.0-75.0); Hemoglobin 11.1 g/dL (12.0-16.0); Mean Corpuscular HGB CONC 34.2 g/dL (32.0-36.0); Mean Corpuscular Hemoglobin 32.2 pg (27.0-31.0); Mean Corpuscular Volume 94.2 fl (78.0-98.0); Mean Platelet Volume 7.4 fL (7.4-10.4); Platelet Count 151 10x3/uL (130-400); Red Blood Cell (RBC) Count 3.45 mill/uL (4.20-5.40); White Blood Cell (WBC) Count 10.2 10x3/uL (4.8-10.8)
[2022-08-04 14:36] LABS: ALT (SGPT) 23 U/L (8-55); AST (SGOT) 23 U/L (5-34); Albumin 3.9 g/dL (3.4-4.8); Alkaline Phosphatase 79 U/L (40-110); Anion Gap 14 mmol/L (10-20); BUN (Urea Nitrogen) 31 mg/dL (9.8-20.1); Bilirubin, Total 0.7 mg/dL (0.2-1.2); Calc. Creatinine Clearance 0 mL/min (70-130); Calcium 9.8 mg/dL (7.8-10.44); Carbon Dioxide 28 mmol/L (23-31); Chloride 97 mmol/L (98-107); Estimated GFR 28; Globulin 2.6 g/dL (2.4-3.5); Glucose 221 mg/dL (83-110); Protein, Total 6.5 g/dL (5.8-8.1); Sodium 135 mmol/L (136-145)
[2022-08-04 15:06] LABS: CKMB 0.8 ng/mL (0-6.6)
== END 2022-08-04 22:01 | disposition short-term general hospital (02) ==
LOC: ERS 13:26
DX: I21.4 Non-ST elevation (NSTEMI) myocardial infarction (principal); I25.10 Atherosclerotic heart disease of native coronary artery without angina pectoris; E11.9 Type 2 diabetes mellitus without complications; J44.9 Chronic obstructive pulmonary disease, unspecified; E78.00 Pure hypercholesterolemia, unspecified; Z79.4 Long term (current) use of insulin; Z79.899 Other long term (current) drug therapy
CPT/HCPCS: 36415; 71045; 80053; 82553; 83605; 84484; 85025; 93005